=== PATIENT | female | born 1955 | race Caucasian/White ===

== ENCOUNTER → 2018-09-06 09:59 | Outpatient (CLI) | payer OTHER, SELFPAY ==
--- NOTE | 2018-09-06 | DI.MG.S_ITS ---
BILATERAL DIGITAL SCREENING MAMMOGRAM 3D/2D WITH CAD: 09/06/2018 CLINICAL: Routine screening. Family history of breast cancer. Comparison is made to exams dated: 09/24/2016 mammogram and 01/06/2008 mammogram - [facility]. The tissue of both breasts is heterogeneously dense. This may lower the sensitivity of mammography. Current study was also evaluated with a Computer Aided Detection (CAD) system. No significant masses, calcifications, or other findings are seen in either breast. There has been no significant interval change. IMPRESSION: NEGATIVE There is no mammographic evidence of malignancy. A 1 year screening mammogram is recommended. This exam was interpreted at Station ID: [id number]. NOTE: For mammograms, a report in lay terms will be sent to the patient. Approximately 15% of breast malignancies will not be visualized mammographically. In the management of a palpable breast mass, a negative mammogram must not discourage biopsy of a clinically suspicious lesion. Electronically Signed By: Viktoryia hitchcock/luis:09/06/2018 11:45:13 letter sent: Normal Exam ACR BI-RADS Category 1: Negative [id number]
== END ==
PROVIDERS: PCP Family Medicine; Visit Provider Internal Medicine
DX: Z12.31 Encounter for screening mammogram for malignant neoplasm of breast (principal); Z80.3 Family history of malignant neoplasm of breast
CPT/HCPCS: 77063; 77067

== ENCOUNTER → 2019-01-17 10:53 | Outpatient (CLI) | payer OTHER, SELFPAY ==
[2019-01-17 12:49] LABS: Alanine Aminotransferase 24 IU/L (9-52); Albumin 4.2 g/dL (3.5-5.0); Albumin Globulin Ratio 1.6 (1.0-2.8); Alkaline Phosphatase 85 U/L (38-126); Aspartate Aminotransferase 21 IU/L (14-36); BUN Creatinine Ratio 14.3 (6-22); Bilirubin Total 0.7 mg/dL (0.2-1.3); Blood Urea Nitrogen 10 mg/dL (7-17); Calcium 9.2 mg/dL (8.4-10.2); Carbon Dioxide 26 mmol/L (22-32); Chloride 103 mmol/L (98-107); Cholesterol 186 mg/dL (140-199); Estimated Glomerular Filt Rate > 60.0 mL/min (>60); Globulin 2.7 g/dL (1.7-4.1); Glucose 103 mg/dL (80-110); HDL Cholesterol 61 mg/dL (40-60); HEMOLYSIS < 15 (0-50); LDL Cholesterol Calculated 108 mg/dL (<100); Potassium 4.3 mmol/L (3.4-5.1); Sodium 138 mmol/L (137-145); Total Protein 6.9 g/dL (6.3-8.2); Triglycerides 86 mg/dL (35-150)
== END ==
PROVIDERS: Visit Provider Internal Medicine
DX: K21.9 Gastro-esophageal reflux disease without esophagitis (principal); L30.9 Dermatitis, unspecified; Z13.1 Encounter for screening for diabetes mellitus; Z13.6 Encounter for screening for cardiovascular disorders; Z86.010 Personal history of colon polyps
CPT/HCPCS: 36415; 80053; 80061

== ENCOUNTER 2019-03-19 08:17 | Day surgery (SDC) | payer OTHER, SELFPAY ==
[2019-03-19] VITALS (8 sets, daily range): BP systolic 111–135; BP diastolic 71–93; PULSE 61–87; RESP 15–18; TEMP 36.3–36.6; O2SAT 94–97; BMI 33.0
[2019-03-19] MEDS: LACTATED RINGERS 1,000 ML 42 ML IV (09:00)
--- NOTE | 2019-03-19 09:19 | PM.PREOP ---
Pre-operative Note Interval Note History & Physical reviewed/Exam performed by Physician: Yes Changes to H&P: No H&P completed within 30 days and has changed as indicated here:: please see note from 02/20 for history and physical
--- NOTE | 2019-03-19 10:19 | PM.OP.1 ---
Operative Date/Time/Diagnoses Date of procedure: 03/19/19 Time of procedure: 10:09 Post-op diagnosis: same (Small internal hemorrhoids. Decreased sphincter tone. No evidence of abscess) Procedure & Clinicians Procedure: A not scope be with 4 column banding of internal hemorrhoids Same procedure as scheduled: Yes Indications: Anal pain and bleeding Surgeon: Erik Heller Click Yes if Unassisted: Yes Anesthesia Type: General Operative Notes Findings: For small columns of hemorrhoids were banded. Each of these were associated with small hemorrhoids at the level just inside the anal verge. Bands were placed well above the dentate line. Closure Type: not applicable Specimen(s): none sent Prosthetic devices, grafts, tissues, transplants, or devices: Rubber bands Estimated Blood Loss (mL): 0 Procedure in detail: Patient is placed in left lateral decubitus on her stretcher after undergoing general LMA anesthesia. An axillary roll was placed and she was padded. Digital exam was remarkable for decreased sphincter tone. There was no visible fissure. Anoscope was inserted and circumferential exam performed. There were some small internal hemorrhoids mostly right inside the anal verge. The a banding anoscopy was inserted and I banded 4 columns of hemorrhoids. There was no significant bleeding and no complication. Patient was awakened extubated taken recovery area in good condition. Complications: none Condition: stable Disposition: PACU Plan for aftercare: Follow-up in office
[2019-03-19] MEDS: fentaNYL 100 MCG/2 ML INJ 50 MCG IV ×2 (10:30→10:40)
[2019-03-19] MEDS: HYDROMORPHONE 2 MG INJ 0.5 MG IV (10:57)
[2019-03-19] MEDS: HYDROCODONE/ACET 5/325 TABLET 1 TAB PO (11:59)
== END 2019-03-19 12:40 | disposition home or self-care (01) ==
PROVIDERS: PCP Internal Medicine; Visit Provider Specialist
PROC: 0DJD8ZZ Inspection of Lower Intestinal Tract, Via Natural or Artificial Opening Endoscopic (ICD-10-PCS; CPT 45378; principal; 2019-03-19 09:45)
DX: K64.8 Other hemorrhoids (principal)
CPT/HCPCS: 46221; J1100; J1170; J2704; J3010

== ENCOUNTER 2019-04-24 15:21 | Emergency (ER) | payer OTHER, SELFPAY ==
[2019-04-24] VITALS (14 sets, daily range): BP systolic 118–145; BP diastolic 69–88; PULSE 68–88; RESP 14–22; TEMP 36.8–37; O2SAT 93–99; BMI 35.5
--- NOTE | 2019-04-24 15:24 | DI.RAD.S_ITS ---
PROCEDURE: XR CHEST 1V INDICATIONS: chest pain TECHNIQUE: One view of the chest was acquired. COMPARISON: [facility], , CHEST 1 VIEW, 11/22/2015, 17:29. FINDINGS: Surgical changes and devices: None. Lungs and pleura: Lungs are clear. No pleural effusions or pneumothorax. Mediastinum: Mediastinal contours appear normal. Heart size is normal. Bones and chest wall: No suspicious bony lesions. Overlying soft tissues appear unremarkable. IMPRESSION: Stable chest. No acute cardiopulmonary process is evident. Dictated by: Ranjith Wagner M.D. on 04/24/2019 at 14:50 Approved by: Ranjith Wagner M.D. on 04/24/2019 at 14:51
[2019-04-24] MEDS: NITROGLYCERIN 0.4 MG SL TAB SL ×3 (15:35→17:17)
--- NOTE | 2019-04-24 15:35 | ED.CHESTPAIN ---
HPI - Chest Pain General Chief Complaint: Chest Pain Stated Complaint: CHEST PAIN Time Seen by Provider: 04/24/19 15:26 Source: patient Mode of arrival: ambulatory Limitations: no limitations History of Present Illness HPI narrative: Patient is a 63-year-old female who presents with chest discomfort. She has no history of coronary artery disease. She says she has had multiple episodes today typically with exertion. The 1st started shortly after she woke up this morning at 7:00 a.m. she was walking and noticed at another time she was going upstairs. Now it seems to be at rest in the emergency department seems to be quite intense. Left-sided under left breast nonradiating no shortness of breath no nausea or diaphoresis. She has never had anything like this in the past. She took aspirin prior to arrival. MD complaint: chest pain Onset (ago): hour(s) Duration: intermittent Quality: sharp Pain radiation: none Relieving factors: nothing Exacerbating factors: exertion Related Data Home Medications Medication Instructions Recorded Confirmed aspirin 325 mg tablet 650 mg PO Q4-6H PRN 12/11/18 04/24/19 desonide 0.05 % topical ointment 1 applictn TOP DAILY 12/11/18 04/24/19 Vitamins 1 dose PO DAILY 04/24/19 04/24/19 fluocinonide 1 applic TOPICAL DIRECTED 04/24/19 04/24/19 metronidazole [Noritate] 1 applic TOPICAL QPM 04/24/19 04/24/19 omeprazole 40 mg PO BEDTIME 04/24/19 04/24/19 Previous Rx's Medication Instructions Recorded hydrocortisone acetate 25 mg 25 mg [place] QDAYP PRN #12 suppositor 12/11/18 rectal suppository clotrimazole-betamethasone 1 1 applictn TOP BID #45 gram 01/22/19 %-0.05 % topical cream Allergies Allergy/AdvReac Type Severity Reaction Status Date / Time Iodinated Contrast- Oral and Allergy Severe shakes, Verified 04/24/19 15:34 IV Dye hives, [IODINATED CONTRAST MEDIA - itchy IV DYE] lidocaine [LIDOCAINE] Allergy Severe shakes, Verified 04/24/19 15:34 hyperventilating, near syncope adhesive [ADHESIVE] Allergy Mild paper tape Verified 04/24/19 15:34 causes blisters, other tapes ok prilocaine [PRILOCAINE] Allergy Mild shaking, Verified 04/24/19 15:34 rash Sulfa (Sulfonamide Allergy Mild childhood Verified 04/24/19 15:34 Antibiotics) rxn [SULFA (SULFONAMIDE ANTIBIOTICS)] julissa Allergy Mild rash Uncoded 04/24/19 15:34 metal Allergy Mild necklaces, Uncoded 04/24/19 15:34 rings, bracelets, causes irritations/blisters fin fish Allergy Unknown rash/hives Uncoded 04/24/19 15:34 Review of Systems Review of Systems GENERAL: Denies chills, fatigue, malaise, fever, sweats, travel HEENT: Denies sinus pain, ear pain, sore throat, difficulty swallowing, neck pain RESPIRATORY: Denies dyspnea, cough, wheezing, hemoptysis, sputum. CARDIOVASCULAR: See HPI GASTROINTESTINAL: Denies nausea, vomiting, abdominal pain, diarrhea, constipation, melena. : Denies dysuria, frequency, incontinence, hematuria, urinary retention, flank pain. MUSCULOSKELETAL: Denies weakness, joint pain, or bony pain SKIN: No rash, no erythema, no pruritus NEUROLOGIC: Denies weakness, dizziness, headache, numbness, change in speech, confusion PSYCHIATRIC: No concerning psychosocial issues. 12 point review of systems is negative except for those stated above and HPI [facility] History GERD (gastroesophageal reflux disease) (Chronic 01/22/13) H/O adenomatous polyp of colon (Inactive 09/12/11) Venous insufficiency of left leg (Chronic) Class 1 obesity (Inactive 12/30/14) Eczema (Inactive 03/02/15) Hayfever (Chronic) Hiatal hernia (Chronic) Rosacea (Chronic) Chicken pox (Resolved 1968) Encephalitis (Resolved ~1962) Foot pain (Resolved 2005) Gluten enteropathy (Resolved) Mumps (Resolved ~1960) Cataract (Inactive) Hemorrhoids (Inactive) Surgical History Anesthesia complication (Resolved) History of strabismus surgery (Resolved 1966) Status post colonoscopy (Resolved 01/10/10) Status post endoscopy (Resolved 08/06/14) Status post knee surgery (Resolved 2011) Status post laparoscopic cholecystectomy (Resolved 2013) Status post laparoscopy (Resolved 05/2010) Status post ovarian cystectomy (Resolved 2003) Family History Father CAD (coronary artery disease) High cholesterol Asbestos exposure Smoker Myocardial infarction Grandfather Kidney stones Grandmother Goiter Breast cancer Colon cancer Mother COPD (chronic obstructive pulmonary disease) Diabetes mellitus Lung disease Grandmother Breast cancer Sister Age: 63 Atrial fibrillation Asthma Grandfather No problems noted. Social History marital status: household members: spouse occupational status: previously employed Smoking Status: Never smoker alcohol intake: never substance use type: does not use Family History Father CAD (coronary artery disease) High cholesterol Asbestos exposure Smoker Myocardial infarction Grandfather Kidney stones Grandmother Goiter Breast cancer Colon cancer Mother COPD (chronic obstructive pulmonary disease) Diabetes mellitus Lung disease Grandmother Breast cancer Sister Age: 63 Atrial fibrillation Asthma Grandfather No problems noted. Social History marital status: household members: spouse occupational status: previously employed Smoking Status: Never smoker alcohol intake: never substance use type: does not use Exam Initial Vital Signs Initial Vital Signs: Vital Signs Pulse Rate 88 04/24/19 15:24 Respiratory Rate 22 04/24/19 15:24 Blood Pressure 123/86 04/24/19 15:24 Pulse Oximetry 98 04/24/19 15:24 GENERAL: Patient quite anxious although she appears in severe pain HEENT: Head atraumatic,EOMI, pupils reactive, face symmetric, CARDIOVASCULAR: Regular rate and rhythm without murmurs, rubs or gallops. Pain under left breast not reproducible to palpation RESPIRATORY: Breath sounds equal bilaterally, no wheezes rales or rhonchi. ABDOMEN: Soft, nontender. Normoactive bowel sounds all 4 quadrants. No guarding or rebound. : No CVA tenderness EXTREMITIES: Normal range of motion, no clubbing or edema. Neurovascularly intact NEUROLOGICAL: Alert and oriented x4.Normal gait and speech. Cranial nerves II through XII grossly intact. SKIN: Warm, dry, no laceration, no petechiae, no rashes or lesions. Course Orders Ordered: Discontinued Medications Aspirin (Aspirin Chew) 324 mg PO NOW ONE Stop: 04/24/19 15:34 Last Admin: 04/24/19 15:39 Dose: Not Given Nitroglycerin (Nitrostat) 0.4 mg SL [id number] PRN PRN Reason: Chest Pain Last Admin: 04/24/19 17:17 Dose: 0.4 mg Admin: 04/24/19 17:05 Dose: 0.4 mg Admin: 04/24/19 15:35 Dose: 0.4 mg Pantoprazole Sodium (Protonix) 40 mg IV NOW ONE Stop: 04/24/19 15:42 Last Admin: 04/24/19 15:56 Dose: 40 mg Vital Signs - 8 hr 04/24/19 15:24 04/24/19 15:25 04/24/19 15:35 Temperature 98.3 F Pulse Rate 88 86 88 Respiratory Rate 22 18 18 Blood Pressure 145/88 H Blood Pressure [Right Arm] 123/86 139/88 Pulse Oximetry 98 99 98 04/24/19 15:43 04/24/19 16:00 04/24/19 16:30 Temperature Pulse Rate 75 69 Respiratory Rate 20 14 Blood Pressure Blood Pressure [Right Arm] 123/86 118/87 120/87 Pulse Oximetry 98 96 04/24/19 17:05 04/24/19 17:07 04/24/19 17:17 Temperature Pulse Rate 70 74 68 Respiratory Rate 18 Blood Pressure 129/80 122/75 Blood Pressure [Right Arm] 129/80 Pulse Oximetry 94 04/24/19 17:18 04/24/19 17:27 Temperature Pulse Rate 68 Respiratory Rate 20 Blood Pressure 122/69 Blood Pressure [Right Arm] 122/76 Pulse Oximetry 93 MDM - Chest Pain Lab Data Attestation: I reviewed the patient's lab results. Result diagrams: 04/24/19 15:30 04/24/19 15:30 Lab Results 04/24/19 04/24/19 04/24/19 Range/Units 15:30 15:30 15:30 WBC 5.1 (4.5-11.0) X10^3/uL RBC 4.93 (4.0-5.2) X10^6/uL Hgb 13.2 (12.0-16.0) g/dL Hct 39.7 (36-46) % MCV 80.6 (80-100) fL MCH 26.8 (26-34) PG MCHC 33.3 (30-36) % RDW 15.4 H (11.6-14.8) % Plt Count 239 (150-400) X10^3/uL Neut % (Auto) 53.6 (50-75) % Lymph % (Auto) 36.1 (25-40) % [place] % (Auto) 8.2 (3-14) % Eos % (Auto) 1.7 L (2-4) % Baso % (Auto) 0.4 (0-2) % Neut # (Auto) 2800 (7276-8102) /uL Lymph # (Auto) 1900 (4224-2453) /uL [place] # (Auto) 400 (0-900) /uL Eos # (Auto) 100 (0-450) /uL Baso # (Auto) 0 (0-100) /uL PT 12.9 H (10.1-12.7) SECONDS INR 1.1 (0.9-1.3) APTT 34 (26.4-36.2) SECONDS Sodium 141 (137-145) mmol/L Potassium 3.9 (3.4-5.1) mmol/L Chloride 104 (98-107) mmol/L Carbon Dioxide 27 (22-32) mmol/L BUN 9 (7-17) mg/dL Creatinine 0.70 (0.52-1.04) mg/dL Estimated GFR > 60.0 (>60) mL/min BUN/Creatinine Ratio 12.9 (6-22) Glucose 101 (80-110) mg/dL Calcium 8.9 (8.4-10.2) mg/dL Total Bilirubin 0.6 (0.2-1.3) mg/dL AST 23 (14-36) IU/L ALT 22 (9-52) IU/L Alkaline Phosphatase 71 (38-126) U/L Total Creatine Kinase 36 (30-135) U/L CK-MB (CK-2) TNP CK-MB (CK-2) Rel Index TNP Troponin I < 0.012 (0.01-0.034) ng/mL B-Natriuretic Peptide (<100) Total Protein 7.2 (6.3-8.2) g/dL Albumin 4.2 (3.5-5.0) g/dL Globulin 3.0 (1.7-4.1) g/dL Albumin/Globulin Ratio 1.4 (1.0-2.8) Lipase 119 (23-300) U/L 04/24/19 04/24/19 Range/Units 15:30 17:40 WBC (4.5-11.0) X10^3/uL RBC (4.0-5.2) X10^6/uL Hgb (12.0-16.0) g/dL Hct (36-46) % MCV (80-100) fL MCH (26-34) PG MCHC (30-36) % RDW (11.6-14.8) % Plt Count (150-400) X10^3/uL Neut % (Auto) (50-75) % Lymph % (Auto) (25-40) % [place] % (Auto) (3-14) % Eos % (Auto) (2-4) % Baso % (Auto) (0-2) % Neut # (Auto) (2879-3330) /uL Lymph # (Auto) (4462-4526) /uL [place] # (Auto) (0-900) /uL Eos # (Auto) (0-450) /uL Baso # (Auto) (0-100) /uL PT (10.1-12.7) SECONDS INR (0.9-1.3) APTT (26.4-36.2) SECONDS Sodium (137-145) mmol/L Potassium (3.4-5.1) mmol/L Chloride (98-107) mmol/L Carbon Dioxide (22-32) mmol/L BUN (7-17) mg/dL Creatinine (0.52-1.04) mg/dL Estimated GFR (>60) mL/min BUN/Creatinine Ratio (6-22) Glucose (80-110) mg/dL Calcium (8.4-10.2) mg/dL Total Bilirubin (0.2-1.3) mg/dL AST (14-36) IU/L ALT (9-52) IU/L Alkaline Phosphatase (38-126) U/L Total Creatine Kinase (30-135) U/L CK-MB (CK-2) CK-MB (CK-2) Rel Index Troponin I < 0.012 (0.01-0.034) ng/mL B-Natriuretic Peptide < 100 (<100) Total Protein (6.3-8.2) g/dL Albumin (3.5-5.0) g/dL Globulin (1.7-4.1) g/dL Albumin/Globulin Ratio (1.0-2.8) Lipase (23-300) U/L ECG Data Attestation: I personally reviewed and interpreted this ECG as follows: Prior ECG tracings: available for review Interpretation: EKG 1.: Normal sinus rhythm rate 74 appear interval 154 T-wave inversions noted be through be for all along with the [address] depressions to previous EKG in 2011 EKG 2. Sinus rhythm rate 64 appear interval 157 persistent T-wave inversions no changes MDM Narrative Medical decision making narrative: Patient was given nitroglycerin x3 for her chest discomfort. It does seem to help. She is also given Protonix she has a history of acid reflux. Patient's symptoms are certainly concerning for cardiac pain with exertion. However she is now having pain at rest. She is allergic to iodine at this time I do not believe her to have symptoms consistent with dissection. Pain seems to be localized under her left breast is not reproducible with movement or palpation. I discussed with PCP Dr. Glover, [facility] not able to do stress testing over the weekend. [place] doctor Moran has found bed at [place]. Dr. Greer Discharge Plan Departure Patient Disposition: [facility] Clinical Impression: Chest pain Qualifiers: Chest pain type: unspecified Qualified Code(s): R07.9 - Chest pain, unspecified Discharge Date/Time: 04/24/19 18:56 Interventions: ED Discharge Assessment Last Done: 04/24/19 18:47 Prescriptions: No Action desonide 0.05 % ointment 1 applictn TOP DAILY RF: 0 aspirin [Luisa Aspirin] 325 mg tablet 650 mg PO Q4-6H PRN (Reason: Headache) RF: 0 hydrocortisone acetate [Anusol-HC] 25 mg suppository 25 mg [place] QDAYP PRN (Reason: hemorrhoids) Qty: 12 RF: 0 clotrimazole-betamethasone 1-0.05 % cream 1 applictn TOP BID Qty: 45 RF: 0 omeprazole 40 mg capsule,delayed release(DR/EC) 40 mg PO BEDTIME RF: 0 fluocinonide 0.05 % Ointment 1 applic TOPICAL DIRECTED RF: 0 Noritate 1 % Cream 1 applic topical QPM RF: 0 Vitamins 1 dose PO DAILY RF: 0 Referrals: Td Bojras MD [Primary Care Provider] -
[2019-04-24 15:38] LABS: Add Manual Diff / Slide Review NO; Basophils Absolute Auto 0 /uL (0-100); Basophils Percent Auto 0.4 % (0-2); Eosinophils Absolute Auto 100 /uL (0-450); Eosinophils Percent Auto 1.7 % (2-4); Hematocrit 39.7 % (36-46); Hemoglobin 13.2 g/dL (12.0-16.0); Lymphocytes Absolute Auto 1900 /uL (1100-4500); Lymphocytes Percent Auto 36.1 % (25-40); Mean Corpuscular HGB Conc 33.3 % (30-36); Mean Corpuscular Hemoglobin 26.8 PG (26-34); Mean Corpuscular Volume 80.6 fL (80-100); Monocytes Absolute Auto 400 /uL (0-900); Monocytes Percent Auto 8.2 % (3-14); Neutrophils Absolute Auto 2800 /uL (1500-7000); Neutrophils Percent Auto 53.6 % (50-75); Platelet Count 239 X10^3/uL (150-400); Red Blood Cell Count 4.93 X10^6/uL (4.0-5.2); Red Cell Distribution Width 15.4 % (11.6-14.8); White Blood Cell Count 5.1 X10^3/uL (4.5-11.0)
--- NOTE | 2019-04-24 15:41 | ED_ITS ---
HPI - Chest Pain General Chief Complaint: Chest Pain Stated Complaint: CHEST PAIN Time Seen by Provider: 04/24/19 15:26 Source: patient Mode of arrival: ambulatory Limitations: no limitations History of Present Illness HPI narrative: Patient is a 63-year-old female who presents with chest discomfort. She has no history of coronary artery disease. She says she has had multiple episodes today typically with exertion. The 1st started shortly after she woke up this morning at 7:00 a.m. she was walking and noticed at another time she was going upstairs. Now it seems to be at rest in the emergency department seems to be quite intense. Left-sided under left breast nonradiating no shortness of breath no nausea or diaphoresis. She has never had anything like this in the past. She took aspirin prior to arrival. MD complaint: chest pain Onset (ago): hour(s) Duration: intermittent Quality: sharp Pain radiation: none Relieving factors: nothing Exacerbating factors: exertion Related Data Home Medications Medication Instructions Recorded Confirmed aspirin 325 mg tablet 650 mg PO Q4-6H PRN 12/11/18 04/24/19 desonide 0.05 % topical ointment 1 applictn TOP DAILY 12/11/18 04/24/19 Vitamins 1 dose PO DAILY 04/24/19 04/24/19 fluocinonide 1 applic TOPICAL DIRECTED 04/24/19 04/24/19 metronidazole [Noritate] 1 applic TOPICAL QPM 04/24/19 04/24/19 omeprazole 40 mg PO BEDTIME 04/24/19 04/24/19 Previous Rx's Medication Instructions Recorded hydrocortisone acetate 25 mg 25 mg ME QDAYP PRN #12 suppositor 12/11/18 rectal suppository clotrimazole-betamethasone 1 1 applictn TOP BID #45 gram 01/22/19 %-0.05 % topical cream Allergies Allergy/AdvReac Type Severity Reaction Status Date / Time Iodinated Contrast- Oral and Allergy Severe shakes, Verified 04/24/19 15:34 IV Dye hives, [IODINATED CONTRAST MEDIA - itchy IV DYE] lidocaine [LIDOCAINE] Allergy Severe shakes, Verified 04/24/19 15:34 hyperventilating, near syncope adhesive [ADHESIVE] Allergy Mild paper tape Verified 04/24/19 15:34 causes blisters, other tapes ok prilocaine [PRILOCAINE] Allergy Mild shaking, Verified 04/24/19 15:34 rash Sulfa (Sulfonamide Allergy Mild childhood Verified 04/24/19 15:34 Antibiotics) rxn [SULFA (SULFONAMIDE ANTIBIOTICS)] julissa Allergy Mild rash Uncoded 04/24/19 15:34 metal Allergy Mild necklaces, Uncoded 04/24/19 15:34 rings, bracelets, causes irritations/blisters fin fish Allergy Unknown rash/hives Uncoded 04/24/19 15:34 Review of Systems Review of Systems GENERAL: Denies chills, fatigue, malaise, fever, sweats, travel HEENT: Denies sinus pain, ear pain, sore throat, difficulty swallowing, neck pain RESPIRATORY: Denies dyspnea, cough, wheezing, hemoptysis, sputum. CARDIOVASCULAR: See HPI GASTROINTESTINAL: Denies nausea, vomiting, abdominal pain, diarrhea, constipation, melena. : Denies dysuria, frequency, incontinence, hematuria, urinary retention, flank pain. MUSCULOSKELETAL: Denies weakness, joint pain, or bony pain SKIN: No rash, no erythema, no pruritus NEUROLOGIC: Denies weakness, dizziness, headache, numbness, change in speech, confusion PSYCHIATRIC: No concerning psychosocial issues. 12 point review of systems is negative except for those stated above and HPI [facility] Medical History GERD (gastroesophageal reflux disease) (Chronic 01/22/13) H/O adenomatous polyp of colon (Inactive 09/12/11) Venous insufficiency of left leg (Chronic) Class 1 obesity (Inactive 12/30/14) Eczema (Inactive 03/02/15) Hayfever (Chronic) Hiatal hernia (Chronic) Rosacea (Chronic) Chicken pox (Resolved 1968) Encephalitis (Resolved ~1962) Foot pain (Resolved 2005) Gluten enteropathy (Resolved) Mumps (Resolved ~1960) Cataract (Inactive) Hemorrhoids (Inactive) Surgical History Anesthesia complication (Resolved) History of strabismus surgery (Resolved 1966) Status post colonoscopy (Resolved 01/10/10) Status post endoscopy (Resolved 08/06/14) Status post knee surgery (Resolved 2011) Status post laparoscopic cholecystectomy (Resolved 2013) Status post laparoscopy (Resolved 05/2010) Status post ovarian cystectomy (Resolved 2003) Family History Father CAD (coronary artery disease) High cholesterol Asbestos exposure Smoker Myocardial infarction Grandfather Kidney stones Grandmother Goiter Breast cancer Colon cancer Mother COPD (chronic obstructive pulmonary disease) Diabetes mellitus Lung disease Grandmother Breast cancer Sister Age: 63 Atrial fibrillation Asthma Grandfather No problems noted. Social History marital status: household members: spouse occupational status: previously employed Smoking Status: Never smoker alcohol intake: never substance use type: does not use Family History Father CAD (coronary artery disease) High cholesterol Asbestos exposure Smoker Myocardial infarction Grandfather Kidney stones Grandmother Goiter Breast cancer Colon cancer Mother COPD (chronic obstructive pulmonary disease) Diabetes mellitus Lung disease Grandmother Breast cancer Sister Age: 63 Atrial fibrillation Asthma Grandfather No problems noted. Social History marital status: household members: spouse occupational status: previously employed Smoking Status: Never smoker alcohol intake: never substance use type: does not use Exam Initial Vital Signs Initial Vital Signs: Vital Signs Pulse Rate 88 04/24/19 15:24 Respiratory Rate 22 04/24/19 15:24 Blood Pressure 123/86 04/24/19 15:24 Pulse Oximetry 98 04/24/19 15:24 GENERAL: Patient quite anxious although she appears in severe pain HEENT: Head atraumatic,EOMI, pupils reactive, face symmetric, CARDIOVASCULAR: Regular rate and rhythm without murmurs, rubs or gallops. Pain under left breast not reproducible to palpation RESPIRATORY: Breath sounds equal bilaterally, no wheezes rales or rhonchi. ABDOMEN: Soft, nontender. Normoactive bowel sounds all 4 quadrants. No guarding or rebound. : No CVA tenderness EXTREMITIES: Normal range of motion, no clubbing or edema. Neurovascularly i ntact NEUROLOGICAL: Alert and oriented x4.Normal gait and speech. Cranial nerves II through XII grossly intact. SKIN: Warm, dry, no laceration, no petechiae, no rashes or lesions. Course Orders Ordered: Discontinued Medications Aspirin (Aspirin Chew) 324 mg PO NOW ONE Stop: 04/24/19 15:34 Last Admin: 04/24/19 15:39 Dose: Not Given Nitroglycerin (Nitrostat) 0.4 mg SL [id number] PRN PRN Reason: Chest Pain Last Admin: 04/24/19 17:17 Dose: 0.4 mg Admin: 04/24/19 17:05 Dose: 0.4 mg Admin: 04/24/19 15:35 Dose: 0.4 mg Pantoprazole Sodium (Protonix) 40 mg IV NOW ONE Stop: 04/24/19 15:42 Last Admin: 04/24/19 15:56 Dose: 40 mg Vital Signs - 8 hr 04/24/19 15:24 04/24/19 15:25 04/24/19 15:35 Temperature 98.3 F Pulse Rate 88 86 88 Respiratory Rate 22 18 18 Blood Pressure 145/88 H Blood Pressure [Right Arm] 123/86 139/88 Pulse Oximetry 98 99 98 04/24/19 15:43 04/24/19 16:00 04/24/19 16:30 Temperature Pulse Rate 75 69 Respiratory Rate 20 14 Blood Pressure Blood Pressure [Right Arm] 123/86 118/87 120/87 Pulse Oximetry 98 96 04/24/19 17:05 04/24/19 17:07 04/24/19 17:17 Temperature Pulse Rate 70 74 68 Respiratory Rate 18 Blood Pressure 129/80 122/75 Blood Pressure [Right Arm] 129/80 Pulse Oximetry 94 04/24/19 17:18 04/24/19 17:27 Temperature Pulse Rate 68 Respiratory Rate 20 Blood Pressure 122/69 Blood Pressure [Right Arm] 122/76 Pulse Oximetry 93 MDM - Chest Pain Lab Data Attestation: I reviewed the patient's lab results. Result diagrams: 04/24/19 15:30 04/24/19 15:30 Lab Results 04/24/19 04/24/19 04/24/19 Range/Units 15:30 15:30 15:30 WBC 5.1 (4.5-11.0) X10^3/uL RBC 4.93 (4.0-5.2) X10^6/uL Hgb 13.2 (12.0-16.0) g/dL Hct 39.7 (36-46) % MCV 80.6 (80-100) fL MCH 26.8 (26-34) PG MCHC 33.3 (30-36) % RDW 15.4 H (11.6-14.8) % Plt Count 239 (150-400) X10^3/uL Neut % (Auto) 53.6 (50-75) % Lymph % (Auto) 36.1 (25-40) % Hardeman % (Auto) 8.2 (3-14) % Eos % (Auto) 1.7 L (2-4) % Baso % (Auto) 0.4 (0-2) % Neut # (Auto) 2800 (8358-2495) /uL Lymph # (Auto) 1900 (2584-3010) /uL Hardeman # (Auto) 400 (0-900) /uL Eos # (Auto) 100 (0-450) /uL Baso # (Auto) 0 (0-100) /uL PT 12.9 H (10.1-12.7) SECONDS INR 1.1 (0.9-1.3) APTT 34 (26.4-36.2) SECONDS Sodium 141 (137-145) mmol/L Potassium 3.9 (3.4-5.1) mmol/L Chloride 104 (98-107) mmol/L Carbon Dioxide 27 (22-32) mmol/L BUN 9 (7-17) mg/dL Creatinine 0.70 (0.52-1.04) mg/dL Estimated GFR > 60.0 (>60) mL/min BUN/Creatinine Ratio 12.9 (6-22) Glucose 101 (80-110) mg/dL Calcium 8.9 (8.4-10.2) mg/dL Total Bilirubin 0.6 (0.2-1.3) mg/dL AST 23 (14-36) IU/L ALT 22 (9-52) IU/L Alkaline Phosphatase 71 (38-126) U/L Total Creatine Kinase 36 (30-135) U/L CK-MB (CK-2) TNP CK-MB (CK-2) Rel Index TNP Troponin I < 0.012 (0.01-0.034) ng/mL B-Natriuretic Peptide (<100) Total Protein 7.2 (6.3-8.2) g/dL Albumin 4.2 (3.5-5.0) g/dL Globulin 3.0 (1.7-4.1) g/dL Albumin/Globulin Ratio 1.4 (1.0-2.8) Lipase 119 (23-300) U/L 04/24/19 04/24/19 Range/Units 15:30 17:40 WBC (4.5-11.0) X10^3/uL RBC (4.0-5.2) X10^6/uL Hgb (12.0-16.0) g/dL Hct (36-46) % MCV (80-100) fL MCH (26-34) PG MCHC (30-36) % RDW (11.6-14.8) % Plt Count (150-400) X10^3/uL Neut % (Auto) (50-75) % Lymph % (Auto) (25-40) % Hardeman % (Auto) (3-14) % Eos % (Auto) (2-4) % Baso % (Auto) (0-2) % Neut # (Auto) (3134-8822) /uL Lymph # (Auto) (3608-4940) /uL Hardeman # (Auto) (0-900) /uL Eos # (Auto) (0-450) /uL Baso # (Auto) (0-100) /uL PT (10.1-12.7) SECONDS INR (0.9-1.3) APTT (26.4-36.2) SECONDS Sodium (137-145) mmol/L Potassium (3.4-5.1) mmol/L Chloride (98-107) mmol/L Carbon Dioxide (22-32) mmol/L BUN (7-17) mg/dL Creatinine (0.52-1.04) mg/dL Estimated GFR (>60) mL/min BUN/Creatinine Ratio (6-22) Glucose (80-110) mg/dL Calcium (8.4-10.2) mg/dL Total Bilirubin (0.2-1.3) mg/dL AST (14-36) IU/L ALT (9-52) IU/L Alkaline Phosphatase (38-126) U/L Total Creatine Kinase (30-135) U/L CK-MB (CK-2) CK-MB (CK-2) Rel Index Troponin I < 0.012 (0.01-0.034) ng/mL B-Natriuretic Peptide < 100 (<100) Total Protein (6.3-8.2) g/dL Albumin (3.5-5.0) g/dL Globulin (1.7-4.1) g/dL Albumin/Globulin Ratio (1.0-2.8) Lipase (23-300) U/L ECG Data Attestation: I personally reviewed and interpreted this ECG as follows: Prior ECG tracings: available for review Interpretation: EKG 1.: Normal sinus rhythm rate 74 appear interval 154 T-wave inversions noted be through be for all along with the [address] depressions to previous EKG in 2011 EKG 2. Sinus rhythm rate 64 appear interval 157 persistent T-wave inversions no changes MDM Narrative Medical decision making narrative: Patient was given nitroglycerin x3 for her chest discomfort. It does seem to help. She is also given Protonix she has a history of acid reflux. Patient's symptoms are certainly concerning for cardiac pain with exertion. However she is now having pain at rest. She is allergic to iodine at this time I do not believe her to have symptoms consistent with dissection. Pain seems to be localized under her left breast is not reproducible with movement or palpation. I discussed with PCP Dr. Glover, [facility] not able to do stress testing over the weekend. [facility] has found bed at [facility] Dr. Greer Discharge Plan Departure Patient Disposition: [facility] Clinical Impression: Chest pain Qualifiers: Chest pain type: unspecified Qualified Code(s): R07.9 - Chest pain, unspecified Discharge Date/Time: 04/24/19 18:56 Interventions: ED Discharge Assessment Last Done: 04/24/19 18:47 Prescriptions: No Action desonide 0.05 % ointment 1 applictn TOP DAILY RF: 0 aspirin [Luisa Aspirin] 325 mg tablet 650 mg PO Q4-6H PRN (Reason: Headache) RF: 0 hydrocortisone acetate [Anusol-HC] 25 mg suppository 25 mg ME QDAYP PRN (Reason: hemorrhoids) Qty: 12 RF: 0 clotrimazole-betamethasone 1-0.05 % cream 1 applictn TOP BID Qty: 45 RF: 0 omeprazole 40 mg capsule,delayed release(DR/EC) 40 mg PO BEDTIME RF: 0 fluocinonide 0.05 % Ointment 1 applic TOPICAL DIRECTED RF: 0 Noritate 1 % Cream 1 applic topical QPM RF: 0 Vitamins 1 dose PO DAILY RF: 0 Referrals: Td Borjas MD [Primary Care Provider] -
[2019-04-24 15:45] LABS: INR 1.1 (0.9-1.3); Prothrombin Time 12.9 SECONDS (10.1-12.7)
[2019-04-24 15:47] LABS: PTT Partial Thromboplastin Tim 34 SECONDS (26.4-36.2)
[2019-04-24 15:50] LABS: Alanine Aminotransferase 22 IU/L (9-52); Albumin 4.2 g/dL (3.5-5.0); Albumin Globulin Ratio 1.4 (1.0-2.8); Alkaline Phosphatase 71 U/L (38-126); Aspartate Aminotransferase 23 IU/L (14-36); BUN Creatinine Ratio 12.9 (6-22); Bilirubin Total 0.6 mg/dL (0.2-1.3); Blood Urea Nitrogen 9 mg/dL (7-17); Calcium 8.9 mg/dL (8.4-10.2); Carbon Dioxide 27 mmol/L (22-32); Chloride 104 mmol/L (98-107); Creatine Kinase 36 U/L (30-135); Estimated Glomerular Filt Rate > 60.0 mL/min (>60); Glucose 101 mg/dL (80-110); HEMOLYSIS < 15 (0-50); Lipase 119 U/L (23-300); Potassium 3.9 mmol/L (3.4-5.1); Sodium 141 mmol/L (137-145); Total Protein 7.2 g/dL (6.3-8.2)
[2019-04-24] MEDS: PANTOPRAZOLE 40 MG VIAL IV (15:56)
[2019-04-24 15:58] LABS: B Type Natriuretic Peptide < 100 (<100)
[2019-04-24 16:01] LABS: Troponin I < 0.012 ng/mL (0.01-0.034)
[2019-04-24 18:17] LABS: Troponin I < 0.012 ng/mL (0.01-0.034)
== END 2019-04-24 18:56 | disposition short-term general hospital (02) ==
PROVIDERS: Emergency Provider Emergency Medicine; PCP Internal Medicine
DX: R07.9 Chest pain, unspecified (principal)
CPT/HCPCS: 36415; 36591; 71045; 80053; 82550; 83690; 83880; 84484; 85025; 85610; 85730; 93005; 93010; 96374; 99284; 99285; C9113

== ENCOUNTER 2019-09-07 15:15 | Outpatient (RCR) | payer OTHER, SELFPAY ==
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
== END 2019-09-11 12:56 ==
LOC: PHYS 15:15
PROVIDERS: PCP Internal Medicine; Visit Provider Internal Medicine
DX: M25.511 Pain in right shoulder (principal); R29.3 Abnormal posture; R53.1 Weakness
CPT/HCPCS: 97110; 97140; 97161

== ENCOUNTER → 2019-09-09 11:33 | Outpatient (CLI) | payer OTHER, SELFPAY ==
--- NOTE | 2019-09-09 | DI.MG.S_ITS ---
BILATERAL DIGITAL SCREENING MAMMOGRAM 3D/2D WITH CAD: 09/09/2019 CLINICAL: Routine screening. Family history of breast cancer. Comparison is made to exams dated: 09/06/2018 mammogram, 09/24/2016 mammogram, and 01/06/2008 mammogram - [facility]. The tissue of both breasts is heterogeneously dense. This may lower the sensitivity of mammography. Current study was also evaluated with a Computer Aided Detection (CAD) system. No significant masses, calcifications, or other findings are seen in either breast. There has been no significant interval change. IMPRESSION: NEGATIVE There is no mammographic evidence of malignancy. A 1 year screening mammogram is recommended. This exam was interpreted at Station ID: [id number]. NOTE: For mammograms, a report in lay terms will be sent to the patient. Approximately 15% of breast malignancies will not be visualized mammographically. In the management of a palpable breast mass, a negative mammogram must not discourage biopsy of a clinically suspicious lesion. Electronically Signed By: Geronimo montes/luis:09/09/2019 13:11:23 letter sent: Normal Exam ACR BI-RADS Category 1: Negative [id number]
== END ==
PROVIDERS: PCP Internal Medicine; Visit Provider Internal Medicine
DX: Z12.31 Encounter for screening mammogram for malignant neoplasm of breast (principal); Z80.3 Family history of malignant neoplasm of breast
CPT/HCPCS: 77063; 77067

== ENCOUNTER 2019-10-22 14:30 | Outpatient (RCR) | payer OTHER, SELFPAY ==
--- NOTE | 2019-09-02 14:31 | PT.OPPOC ---
Current Diagnoses Other specified disorders of muscle (09/02/19) Vulvodynia, unspecified (09/02/19) Visit Care Team Role Provider Type Td Borjas MD Primary Care Provider Physician Specialty: Internal Medicine Address: [address] [place] [address], [facility] [address], [place], [address] Email: [email or web address] Maggie Mcguire MD Attending Provider Physician Specialty: ORE BRIDGE OPERATOR Address: [address] [place] [address] [place] [address], [id number] Email: [email or web address] Plan Of Care PT-OP-T Assessment and Plan Start: 09/02/19 10:27 Freq: Status: Active Protocol: Document 09/02/19 14:30 AMB (Rec: 09/06/19 12:35 AMB [email or web address]) Physical Therapy Assessment Rehab Potential Rehabilitation Potential Good Evaluation Complexity Number of Personal Factors/Comorbidities 3 or More Number of Body Systems Impaired 4 or More Clinical Presentation at Evaluation Evolving Impairments Impairments Pain,Soft Tissue Mobility, Strength,Tone Goals 3 Impairment pain Short Term Goal (STG) Edna will tolerate insertion of a medium dilator without an increase in pain. STG Duration 4 weeks Catheter Finisher And Inspector Goal (LTG) Edna will be able to wash herself without an increase in her baseline pain. LTG Duration 8 weeks 2 Impairment stress incontinence Short Term Goal (STG) Edna will be independent with a HEP to reduce her pelvic tension and improve her pelvic floor strength. STG Duration 4 weeks Retirement Goal (LTG) Edna will be able to cough without leaking urine. LTG Duration 8 weeks Assessment Summary Assessment Edna attends physical therapy with signs and symptoms consistent with vulvodynia. Q tip testing of the vestibule was negative, but palpation at level 1 and 2 internally did reproduce her pain. She has benefited from instruction in dilator use in the past, and may benefit from that again, as well as instruction in skin hygeine and manual therapy to reduce pelvic floor tension and pain. Physical Therapy Plan Frequency and Duration Frequency of Treatment 1x/Week Duration of Treatment 8 weeks Plan of Care Start Date 09/02/19 Plan of Care End Date 10/28/19 Therapeutic Interventions Therapeutic Interventions Home Exercise Program,Manual Therapy,Neuromuscular Re- education,Self-Care/Home Management,Soft Tissue Mobilization,Therapeutic Activities,Therapeutic Exercises Modalities Biofeedback,Electric Stimulation Next Visit Focus/Plan Next Note Type Treatment Note Next Visit Plan sEMG and NMES if the patient can tolerate insertion of the sensor. Manual therapy and stretching, as well as instruction in self care to reduce pain, decrease toileting/skin irritation Plan of Care Dates Plan of Care Start Date 09/02/19 Plan of Care End Date 10/28/19
--- NOTE | 2019-09-02 16:30 | PT.OIE ---
Current Diagnoses Other specified disorders of muscle (09/02/19) Vulvodynia, unspecified (09/02/19) Past Medical History (Last Updated 09/03/19 @ 11:41 by Td Borjas MD) Anxiety (Chronic) Cataract (Inactive) Chicken pox (Resolved 1968) Chronic abdominal pain (Chronic) Class 1 obesity (Inactive 12/30/14) Eczema (Inactive 03/02/15) Encephalitis (Resolved ~1962) Foot pain (Resolved 2005) GERD (gastroesophageal reflux disease) (Chronic 01/22/13) Gluten enteropathy (Resolved) H/O adenomatous polyp of colon (Inactive 09/12/11) Hayfever (Chronic) Hemorrhoids (Inactive) Hiatal hernia (Chronic) Mumps (Resolved ~1960) Pelvic floor dysfunction (Acute) Rosacea (Chronic) Venous insufficiency of right leg (Acute) Vulvodynia (Chronic) Past Surgical History (Last Reviewed 04/24/19 @ 15:41 by Eve Garcia DO) Anesthesia complication (Resolved) History of strabismus surgery (Resolved 1966) Status post colonoscopy (Resolved 01/10/10) Status post endoscopy (Resolved 08/06/14) Status post knee surgery (Resolved 2011) Status post laparoscopic cholecystectomy (Resolved 2013) Status post laparoscopy (Resolved 05/2010) Status post ovarian cystectomy (Resolved 2003) Visit Care Team Role Provider Type Td Borjas MD Primary Care Provider Physician Specialty: Internal Medicine Address: [address] [place] [address] Email: [email or web address] Maggie Mcguire MD Attending Provider Physician Specialty: INDUSTRIAL AERIAL INSTALLER Address: [address] [place] [address] Email: [email or web address] Physical Therapy Initial Evaluation PT-OP-A Visit Information Start: 09/02/19 10:27 Freq: Status: Active Protocol: Document 09/02/19 14:30 AMB (Rec: 09/06/19 12:35 AMB [email or web address]) Out-Patient Physical Therapy Visit Information Visit Information Visit Type Initial Evaluation Visit Start Time 14:30 Visit Stop Time 15:15 Total Visit Minutes 45 Visit Number 1 PT-OP-B Current Condition Start: 09/02/19 10:27 Freq: Status: Active Protocol: Document 09/02/19 14:30 AMB (Rec: 09/06/19 12:35 AMB [email or web address]) Current Condition History of Current Condition Onset Date 2+ years ago Current Complaints pelvic pain History of Current Condition Edna reports that cleaning her pelvic floor in the shower every other day is horribly painful. She states that she does have a history of painful intercourse. She late in life, and did need to use dilators prior to intercourse. That seemed to work well, and she reports that on her honeymoon she was able to tolerate intercourse well. Then her was diagnosed with Parkinson's and had a harder time maintaining an erection and this made intercourse much more painful for her. They are no longer currently sexually active. She is fine with this, her main goal is to decrease her pain with cleaning her pelvic floor. She also notes that while urinating, the act of urinating is not painful, but if the urine gets on her labia or the surrounding tissue that is quite painful. She does note small leaks with cough/sneeze. Personal Factors Other Personal Factors That May Effect History of encephalopathy as a Therapy/Recovery child, depression, back pain, PT-OP-C Subjective Start: 09/02/19 10:27 Freq: Status: Active Protocol: Document 09/02/19 14:30 AMB (Rec: 09/06/19 12:35 AMB [email or web address]) Patient Questionnaires Pelvic Pain and Urgency/Frequency Patient Symptom Scale Pelvic Pain Score 11 PT-OP-I Pelvic Floor Start: 09/02/19 10:27 Freq: Status: Active Protocol: Document 09/02/19 14:30 AMB (Rec: 09/06/19 12:35 AMB [email or web address]) Pelvic Floor Assessment Urine Pelvic Floor Surgery No Urinary Symptoms Dysuria,Pain Leakage Size Small Leakage Cause Cough,Sneeze,Urge Leaks Per Day infrequent Voiding Frequency every 2-3 hours Nocturia 3 Pelvic Clock Pelvic Clock 12-3 Guarding,Hypertonic,Tenderness ,Tightness Pelvic Clock 3-6 Guarding,Hypertonic,Tenderness ,Tightness Pelvic Clock 6-9 Guarding,Hypertonic,Tenderness ,Tightness Pelvic Clock 9-12 Guarding,Hypertonic,Tenderness ,Tightness Pelvic Clock Other Tested with q tip and no pain throughout pelvic clock at labia or vestibule, pain reported above was with insertion to at least one knuckle. Pt does have redness at perineum and toilet paper is present- pt does report blotting which may lead to toilet paper sticking to skin. Comments Pelvic Floor Comments will need to assess prolapse at later date, did not today due to pt's pain levels PT-OP-T Assessment and Plan Start: 09/02/19 10:27 Freq: Status: Active Protocol: Document 09/02/19 14:30 AMB (Rec: 09/06/19 12:35 AMB [email or web address]) Physical Therapy Assessment Rehab Potential Rehabilitation Potential Good Evaluation Complexity Number of Personal Factors/Comorbidities 3 or More Number of Body Systems Impaired 4 or More Clinical Presentation at Evaluation Evolving Impairments Impairments Pain,Soft Tissue Mobility, Strength,Tone Goals 3 Impairment pain Short Term Goal (STG) Edna will tolerate insertion of a medium dilator without an increase in pain. STG Duration 4 weeks Mcfp Goal (LTG) Edna will be able to wash herself without an increase in her baseline pain. LTG Duration 8 weeks 2 Impairment stress incontinence Short Term Goal (STG) Edna will be independent with a HEP to reduce her pelvic tension and improve her pelvic floor strength. STG Duration 4 weeks Coremaker Goal (LTG) Edna will be able to cough without leaking urine. LTG Duration 8 weeks Assessment Summary Assessment Edna attends physical therapy with signs and symptoms consistent with vulvodynia. Q tip testing of the vestibule was negative, but palpation at level 1 and 2 internally did reproduce her pain. She has benefited from instruction in dilator use in the past, and may benefit from that again, as well as instruction in skin hygiene and manual therapy to reduce pelvic floor tension and pain. Physical Therapy Plan Frequency and Duration Frequency of Treatment 1x/Week Duration of Treatment 8 weeks Plan of Care Start Date 09/02/19 Plan of Care End Date 10/28/19 Therapeutic Interventions Therapeutic Interventions Home Exercise Program,Manual Therapy,Neuromuscular Re- education,Self-Care/Home Management,Soft Tissue Mobilization,Therapeutic Activities,Therapeutic Exercises Modalities Biofeedback,Electric Stimulation Next Visit Focus/Plan Next Note Type Treatment Note Next Visit Plan sEMG and NMES if the patient can tolerate insertion of the sensor. Manual therapy and stretching, as well as instruction in self care to reduce pain, decrease toileting/skin irritation
--- NOTE | 2019-09-10 16:21 | PT.OTN ---
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) Physical Therapy Treatment Note PT-OP-A Visit Information Start: 09/02/19 10:27 Freq: Status: Active Protocol: Document 09/10/19 14:30 AMB (Rec: 09/10/19 16:20 AMB [email or web address]) Out-Patient Physical Therapy Visit Information Visit Information Visit Type Treatment Note Visit Start Time 14:30 Visit Stop Time 15:15 Total Visit Minutes 45 Visit Number 2 PT-OP-B Current Condition Start: 09/02/19 10:27 Freq: Status: Active Protocol: Document 09/02/19 14:30 AMB (Rec: 09/06/19 12:35 AMB [email or web address]) Current Condition History of Current Condition Onset Date 2+ years ago Current Complaints pelvic pain History of Current Condition Edna reports that cleaning her pelvic floor in the shower every other day is horribly painful. She states that she does have a history of painful intercourse. She late in life, and did need to use dilators prior to intercourse. That seemed to work well, and she reports that on her honeymoon she was able to tolerate intercourse well. Then her was diagnosed with Parkinson's and had a harder time maintaining an erection and this made intercoure much more painful for her. They are no longer currently sexually active. She is fine with this, her main goal is to decrease her pain with cleaning her pelvic floor. She also notes that while urinating, the act of urinating is not painful, but if the urine gets on her labia or the surrounding tissue that is quite painful. She does note small leaks with cough/sneeze. 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 PT-OP-I Pelvic Floor Start: 09/02/19 10:27 Freq: Status: Active Protocol: Document 09/02/19 14:30 AMB (Rec: 09/06/19 12:35 AMB [email or web address]) Pelvic Floor Assessment Urine Pelvic Floor Surgery No Urinary Symptoms Dysuria,Pain Leakage Size Small Leakage Cause Cough,Sneeze,Urge Leaks Per Day infrequent Voiding Frequency every 2-3 hours Nocturia 3 Pelvic Clock Pelvic Clock 12-3 Guarding,Hypertonic,Tenderness ,Tightness Pelvic Clock 3-6 Guarding,Hypertonic,Tenderness ,Tightness Pelvic Clock 6-9 Guarding,Hypertonic,Tenderness ,Tightness Pelvic Clock 9-12 Guarding,Hypertonic,Tenderness ,Tightness Pelvic Clock Other Tested with q tip and no pain throughout pelvic clock at labia or vestibule, pain reported above was with insertion to at least one knuckle. Pt does have redness at perineum and toilet paper is present- pt does report blotting which may lead to toilet paper sticking to skin. Comments Pelvic Floor Comments will need to assess prolapse at later date, did not today due to pt's pain levels PT-OP-Q Treatments Start: 09/02/19 10:27 Freq: Status: Active Protocol: Document 09/10/19 14:30 AMB (Rec: 09/10/19 16:20 AMB [email or web address]) Therapeutic Exercises Supine Exercises 1 Supine Exercise Name hamstring, hip flexor, happy baby, piriformis stretch Reps/Minutes 30x2 ea Manual Therapy Treatment Soft Tissue Mobilization 1 Body Location level 1 pelvic floor Comments pubococcygeus, light manual stretching only PT-OP-T Assessment and Plan Start: 09/02/19 10:27 Freq: Status: Active Protocol: Document 09/10/19 14:30 AMB (Rec: 09/10/19 16:20 AMB [email or web address]) Physical Therapy Assessment Assessment Summary Assessment Pt was encouraged to use the smallest dilator that she has at home to continue working on the stretching. She did have increased pain at the end of the session, so we will have to be careful with how long that lasts. Physical Therapy Plan Next Visit Focus/Plan Next Note Type Treatment Note Next Visit Plan sEMG and NMES if the patient can tolerate insertion of the sensor. Manual therapy and stretching, as well as instruction in self care to reduce pain, decrease toileting/skin irritation
--- NOTE | 2019-09-17 15:38 | PT.OTN ---
Current Diagnoses Other specified disorders of muscle (09/17/19) Vulvodynia, unspecified (09/17/19) Physical Therapy Treatment Note PT-OP-A Visit Information Start: 09/02/19 10:27 Freq: Status: Active Protocol: Document 09/17/19 14:30 AMB (Rec: 09/17/19 15:38 AMB [email or web address]) Out-Patient Physical Therapy Visit Information Visit Information Visit Type Treatment Note Visit Start Time 14:30 Visit Stop Time 15:15 Total Visit Minutes 45 Visit Number 3 PT-OP-B Current Condition Start: 09/02/19 10:27 Freq: Status: Active Protocol: Document 09/02/19 14:30 AMB (Rec: 09/06/19 12:35 AMB [email or web address]) Current Condition History of Current Condition Onset Date 2+ years ago Current Complaints pelvic pain History of Current Condition Edna reports that cleaning her pelvic floor in the shower every other day is horribly painful. She states that she does have a history of painful intercourse. She late in life, and did need to use dilators prior to intercourse. That seemed to work well, and she reports that on her honeymoon she was able to tolerate intercourse well. Then her was diagnosed with Parkinson's and had a harder time maintaining an erection and this made intercoure much more painful for her. They are no longer currently sexually active. She is fine with this, her main goal is to decrease her pain with cleaning her pelvic floor. She also notes that while urinating, the act of urinating is not painful, but if the urine gets on her labia or the surrounding tissue that is quite painful. She does note small leaks with cough/sneeze. 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 She did not have a lot of pain after PT. But she finds that if she does not take a shower every other day her pain increases. PT-OP-I Pelvic Floor Start: 09/02/19 10:27 Freq: Status: Active Protocol: Document 09/02/19 14:30 AMB (Rec: 09/06/19 12:35 AMB [email or web address]) Pelvic Floor Assessment Urine Pelvic Floor Surgery No Urinary Symptoms Dysuria,Pain Leakage Size Small Leakage Cause Cough,Sneeze,Urge Leaks Per Day infrequent Voiding Frequency every 2-3 hours Nocturia 3 Pelvic Clock Pelvic Clock 12-3 Guarding,Hypertonic,Tenderness ,Tightness Pelvic Clock 3-6 Guarding,Hypertonic,Tenderness ,Tightness Pelvic Clock 6-9 Guarding,Hypertonic,Tenderness ,Tightness Pelvic Clock 9-12 Guarding,Hypertonic,Tenderness ,Tightness Pelvic Clock Other Tested with q tip and no pain throughout pelvic clock at labia or vestibule, pain reported above was with insertion to at least one knuckle. Pt does have redness at perineum and toilet paper is present- pt does report blotting which may lead to toilet paper sticking to skin. Comments Pelvic Floor Comments will need to assess prolapse at later date, did not today due to pt's pain levels PT-OP-Q Treatments Start: 09/02/19 10:27 Freq: Status: Active Protocol: Document 09/17/19 14:30 AMB (Rec: 09/17/19 15:38 AMB [email or web address]) Manual Therapy Treatment Soft Tissue Mobilization 1 Body Location internal stretching Comments Tolerated TrP release of levator ani and obturator internus, light pressure PT-OP-T Assessment and Plan Start: 09/02/19 10:27 Freq: Status: Active Protocol: Document 09/17/19 14:30 AMB (Rec: 09/17/19 15:38 AMB [email or web address]) Physical Therapy Assessment Assessment Summary Assessment Pt encouraged to continue home dilator use at home with the hopes of being able to tolerate sensor next visit. today she was able to tolerate it inserted about half way. Physical Therapy Plan Next Visit Focus/Plan Next Note Type Treatment Note Next Visit Plan sEMG and NMES if the patient can tolerate insertion of the sensor. Manual therapy and stretching, as well as instruction in self care to reduce pain, decrease toileting/skin irritation
--- NOTE | 2019-09-22 15:46 | PT.OTN ---
Current Diagnoses Other specified disorders of muscle (09/22/19) Vulvodynia, unspecified (09/22/19) Physical Therapy Treatment Note PT-OP-A Visit Information Start: 09/02/19 10:27 Freq: Status: Active Protocol: Document 09/22/19 13:45 AMB (Rec: 09/22/19 14:30 AMB [email or web address]) Out-Patient Physical Therapy Visit Information Visit Information Visit Type Treatment Note Visit Start Time 13:45 Visit Stop Time 14:25 Total Visit Minutes 40 Visit Number 4 PT-OP-B Current Condition Start: 09/02/19 10:27 Freq: Status: Active Protocol: Document 09/02/19 14:30 AMB (Rec: 09/06/19 12:35 AMB [email or web address]) Current Condition History of Current Condition Onset Date 2+ years ago Current Complaints pelvic pain History of Current Condition Edna reports that cleaning her pelvic floor in the shower every other day is horribly painful. She states that she does have a history of painful intercourse. She late in life, and did need to use dilators prior to intercourse. That seemed to work well, and she reports that on her honeymoon she was able to tolerate intercourse well. Then her was diagnosed with Parkinson's and had a harder time maintaining an erection and this made intercoure much more painful for her. They are no longer currently sexually active. She is fine with this, her main goal is to decrease her pain with cleaning her pelvic floor. She also notes that while urinating, the act of urinating is not painful, but if the urine gets on her labia or the surrounding tissue that is quite painful. She does note small leaks with cough/sneeze. 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 She states she used vaseline as a lubricant. PT-OP-I Pelvic Floor Start: 09/02/19 10:27 Freq: Status: Active Protocol: Document 09/02/19 14:30 AMB (Rec: 09/06/19 12:35 AMB [email or web address]) Pelvic Floor Assessment Urine Pelvic Floor Surgery No Urinary Symptoms Dysuria,Pain Leakage Size Small Leakage Cause Cough,Sneeze,Urge Leaks Per Day infrequent Voiding Frequency every 2-3 hours Nocturia 3 Pelvic Clock Pelvic Clock 12-3 Guarding,Hypertonic,Tenderness ,Tightness Pelvic Clock 3-6 Guarding,Hypertonic,Tenderness ,Tightness Pelvic Clock 6-9 Guarding,Hypertonic,Tenderness ,Tightness Pelvic Clock 9-12 Guarding,Hypertonic,Tenderness ,Tightness Pelvic Clock Other Tested with q tip and no pain throughout pelvic clock at labia or vestibule, pain reported above was with insertion to at least one knuckle. Pt does have redness at perineum and toilet paper is present- pt does report blotting which may lead to toilet paper sticking to skin. Comments Pelvic Floor Comments will need to assess prolapse at later date, did not today due to pt's pain levels PT-OP-Q Treatments Start: 09/02/19 10:27 Freq: Status: Active Protocol: Document 09/22/19 13:45 AMB (Rec: 09/22/19 15:45 AMB [email or web address]) Neuro Re-Education Treatment Other Activities 1 Details sEMG Comments pt inserted sensor with some discomfort but was able to do it herself. Resting tone originally high but did well with sheeba opening closing to work to get it down, encouraged pt to do this work when pain is starting to increase. PT-OP-T Assessment and Plan Start: 09/02/19 10:27 Freq: Status: Active Protocol: Document 09/22/19 13:45 AMB (Rec: 09/22/19 14:30 [facility] [id number]) Physical Therapy Assessment Assessment Summary Assessment Pt encouraged to avoid using vaseline as lubricant, given a couple lubricant packets. She was able to tolerate sEMG today, and that while her resting tone started out about 6, she was able to drop it to about 3 by the end of the session. Physical Therapy Plan Next Visit Focus/Plan Next Note Type Treatment Note Next Visit Plan sEMG and NMES if the patient can tolerate insertion of the sensor. Manual therapy and stretching, as well as instruction in self care to reduce pain, decrease toileting/skin irritation
--- NOTE | 2019-10-01 15:44 | PT.OTN ---
Current Diagnoses Other specified disorders of muscle (10/01/19) Vulvodynia, unspecified (10/01/19) Physical Therapy Treatment Note PT-OP-A Visit Information Start: 09/02/19 10:27 Freq: Status: Active Protocol: Document 10/01/19 14:30 AMB (Rec: 10/01/19 15:16 AMB [id number]) Out-Patient Physical Therapy Visit Information Visit Information Visit Type Treatment Note Visit Start Time 14:30 Visit Stop Time 15:15 Total Visit Minutes 40 Visit Number 5 PT-OP-B Current Condition Start: 09/02/19 10:27 Freq: Status: Active Protocol: Document 09/02/19 14:30 AMB (Rec: 09/06/19 12:35 AMB [email or web address]) Current Condition History of Current Condition Onset Date 2+ years ago Current Complaints pelvic pain History of Current Condition Edna reports that cleaning her pelvic floor in the shower every other day is horribly painful. She states that she does have a history of painful intercourse. She late in life, and did need to use dilators prior to intercourse. That seemed to work well, and she reports that on her honeymoon she was able to tolerate intercourse well. Then her was diagnosed with Parkinson's and had a harder time maintaining an erection and this made intercoure much more painful for her. They are no longer currently sexually active. She is fine with this, her main goal is to decrease her pain with cleaning her pelvic floor. She also notes that while urinating, the act of urinating is not painful, but if the urine gets on her labia or the surrounding tissue that is quite painful. She does note small leaks with cough/sneeze. 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 She uses the dilator, but then needs to continue to use it so that it doesn't go back to the way that it was. PT-OP-I Pelvic Floor Start: 09/02/19 10:27 Freq: Status: Active Protocol: Document 09/02/19 14:30 AMB (Rec: 09/06/19 12:35 AMB [email or web address]) Pelvic Floor Assessment Urine Pelvic Floor Surgery No Urinary Symptoms Dysuria,Pain Leakage Size Small Leakage Cause Cough,Sneeze,Urge Leaks Per Day infrequent Voiding Frequency every 2-3 hours Nocturia 3 Pelvic Clock Pelvic Clock 12-3 Guarding,Hypertonic,Tenderness ,Tightness Pelvic Clock 3-6 Guarding,Hypertonic,Tenderness ,Tightness Pelvic Clock 6-9 Guarding,Hypertonic,Tenderness ,Tightness Pelvic Clock 9-12 Guarding,Hypertonic,Tenderness ,Tightness Pelvic Clock Other Tested with q tip and no pain throughout pelvic clock at labia or vestibule, pain reported above was with insertion to at least one knuckle. Pt does have redness at perineum and toilet paper is present- pt does report blotting which may lead to toilet paper sticking to skin. Comments Pelvic Floor Comments will need to assess prolapse at later date, did not today due to pt's pain levels PT-OP-Q Treatments Start: 09/02/19 10:27 Freq: Status: Active Protocol: Document 10/01/19 14:30 AMB (Rec: 10/01/19 15:43 AMB [email or web address]) Neuro Re-Education Treatment Other Activities 1 Details sEMG Comments pt inserted sensor with some discomfort but was able to do it herself. Resting tone significantly better than last visit, however has difficulty with edi- feels that the sensor will fall out and that she is pushing. Reinforces lifting up and in with breath work so she can feel the relaxation. PT-OP-T Assessment and Plan Start: 09/02/19 10:27 Freq: Status: Active Protocol: Document 10/01/19 14:30 AMB (Rec: 10/01/19 15:16 AMB [id number]) Physical Therapy Assessment Assessment Summary Assessment Pt with resting baseline between 2-3 to begin with max of 6.5. Appears to be improving with tolerating sensor, reduced resting tone, and using dilators but then continues to feel the need to take very hot shower every other day. Physical Therapy Plan Next Visit Focus/Plan Next Note Type Treatment Note Next Visit Plan sEMG and NMES if the patient can tolerate insertion of the sensor. Manual therapy and stretching, as well as instruction in self care to reduce pain, decrease toileting/skin irritation
--- NOTE | 2019-10-08 15:45 | PT.OTN ---
Current Diagnoses Other specified disorders of muscle (10/08/19) Vulvodynia, unspecified (10/08/19) Physical Therapy Treatment Note PT-OP-A Visit Information Start: 09/02/19 10:27 Freq: Status: Active Protocol: Document 10/08/19 14:30 AMB (Rec: 10/08/19 15:45 AMB [email or web address]) Out-Patient Physical Therapy Visit Information Visit Information Visit Type Treatment Note Visit Start Time 14:30 Visit Stop Time 15:15 Total Visit Minutes 40 Visit Number 6 PT-OP-B Current Condition Start: 09/02/19 10:27 Freq: Status: Active Protocol: Document 09/02/19 14:30 AMB (Rec: 09/06/19 12:35 AMB [email or web address]) Current Condition History of Current Condition Onset Date 2+ years ago Current Complaints pelvic pain History of Current Condition Edna reports that cleaning her pelvic floor in the shower every other day is horribly painful. She states that she does have a history of painful intercourse. She late in life, and did need to use dilators prior to intercourse. That seemed to work well, and she reports that on her honeymoon she was able to tolerate intercourse well. Then her was diagnosed with Parkinson's and had a harder time maintaining an erection and this made intercoure much more painful for her. They are no longer currently sexually active. She is fine with this, her main goal is to decrease her pain with cleaning her pelvic floor. She also notes that while urinating, the act of urinating is not painful, but if the urine gets on her labia or the surrounding tissue that is quite painful. She does note small leaks with cough/sneeze. 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 PT-OP-I Pelvic Floor Start: 09/02/19 10:27 Freq: Status: Active Protocol: Document 09/02/19 14:30 AMB (Rec: 09/06/19 12:35 AMB [email or web address]) Pelvic Floor Assessment Urine Pelvic Floor Surgery No Urinary Symptoms Dysuria,Pain Leakage Size Small Leakage Cause Cough,Sneeze,Urge Leaks Per Day infrequent Voiding Frequency every 2-3 hours Nocturia 3 Pelvic Clock Pelvic Clock 12-3 Guarding,Hypertonic,Tenderness ,Tightness Pelvic Clock 3-6 Guarding,Hypertonic,Tenderness ,Tightness Pelvic Clock 6-9 Guarding,Hypertonic,Tenderness ,Tightness Pelvic Clock 9-12 Guarding,Hypertonic,Tenderness ,Tightness Pelvic Clock Other Tested with q tip and no pain throughout pelvic clock at labia or vestibule, pain reported above was with insertion to at least one knuckle. Pt does have redness at perineum and toilet paper is present- pt does report blotting which may lead to toilet paper sticking to skin. Comments Pelvic Floor Comments will need to assess prolapse at later date, did not today due to pt's pain levels PT-OP-Q Treatments Start: 09/02/19 10:27 Freq: Status: Active Protocol: Document 10/08/19 14:30 AMB (Rec: 10/08/19 15:45 AMB [email or web address]) Neuro Re-Education Treatment Other Activities 1 Details sEMG Comments pt inserted sensor with some discomfort but was able to do it herself. Has difficulty with maintaining edi- feels that the sensor will fall out and that she is pushing. Reinforces lifting up and in with breath work so she can feel the relaxation. Self-Care/Home Management Treatment Education Other Education Pt educated in gentle cleaning and not scratching of perineal area. PT-OP-T Assessment and Plan Start: 09/02/19 10:27 Freq: Status: Active Protocol: Document 10/08/19 14:30 AMB (Rec: 10/08/19 15:45 AMB [email or web address]) Physical Therapy Assessment Assessment Summary Assessment Pt gets annoyed by the crystals and reports itching and this gets so intense that she has to shower with extremely hot water. So really more itching and annoying that causes her to shower, but the hot water is very painful. Is having less pain with insertion and overall lower resting tone, but I think that all of pt's scratching and hot water is exacerbating her symptoms in the long run. Physical Therapy Plan Next Visit Focus/Plan Next Note Type Treatment Note Next Visit Plan sEMG and NMES. Manual therapy and stretching, as well as instruction in self care to reduce pain, decrease toileting/skin irritation
--- NOTE | 2019-10-16 16:54 | PT.OTN ---
Current Diagnoses Other specified disorders of muscle (10/15/19) Vulvodynia, unspecified (10/15/19) Physical Therapy Treatment Note PT-OP-A Visit Information Start: 09/02/19 10:27 Freq: Status: Active Protocol: Document 10/15/19 14:30 AMB (Rec: 10/16/19 16:54 AMB [email or web address]) Out-Patient Physical Therapy Visit Information Visit Information Visit Type Treatment Note Visit Start Time 14:30 Visit Stop Time 15:15 Total Visit Minutes 40 Visit Number 7 PT-OP-B Current Condition Start: 09/02/19 10:27 Freq: Status: Active Protocol: Document 09/02/19 14:30 AMB (Rec: 09/06/19 12:35 AMB [email or web address]) Current Condition History of Current Condition Onset Date 2+ years ago Current Complaints pelvic pain History of Current Condition Edna reports that cleaning her pelvic floor in the shower every other day is horribly painful. She states that she does have a history of painful intercourse. She late in life, and did need to use dilators prior to intercourse. That seemed to work well, and she reports that on her honeymoon she was able to tolerate intercourse well. Then her was diagnosed with Parkinson's and had a harder time maintaining an erection and this made intercoure much more painful for her. They are no longer currently sexually active. She is fine with this, her main goal is to decrease her pain with cleaning her pelvic floor. She also notes that while urinating, the act of urinating is not painful, but if the urine gets on her labia or the surrounding tissue that is quite painful. She does note small leaks with cough/sneeze. 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 PT-OP-I Pelvic Floor Start: 09/02/19 10:27 Freq: Status: Active Protocol: Document 09/02/19 14:30 AMB (Rec: 09/06/19 12:35 AMB [email or web address]) Pelvic Floor Assessment Urine Pelvic Floor Surgery No Urinary Symptoms Dysuria,Pain Leakage Size Small Leakage Cause Cough,Sneeze,Urge Leaks Per Day infrequent Voiding Frequency every 2-3 hours Nocturia 3 Pelvic Clock Pelvic Clock 12-3 Guarding,Hypertonic,Tenderness ,Tightness Pelvic Clock 3-6 Guarding,Hypertonic,Tenderness ,Tightness Pelvic Clock 6-9 Guarding,Hypertonic,Tenderness ,Tightness Pelvic Clock 9-12 Guarding,Hypertonic,Tenderness ,Tightness Pelvic Clock Other Tested with q tip and no pain throughout pelvic clock at labia or vestibule, pain reported above was with insertion to at least one knuckle. Pt does have redness at perineum and toilet paper is present- pt does report blotting which may lead to toilet paper sticking to skin. Comments Pelvic Floor Comments will need to assess prolapse at later date, did not today due to pt's pain levels PT-OP-Q Treatments Start: 09/02/19 10:27 Freq: Status: Active Protocol: Document 10/15/19 14:30 AMB (Rec: 10/16/19 16:54 AMB [email or web address]) Neuro Re-Education Treatment Other Activities 1 Details sEMG Comments pt inserted sensor with some discomfort but was able to do it herself. Better with ability to contract and relax on command today. PT-OP-T Assessment and Plan Start: 09/02/19 10:27 Freq: Status: Active Protocol: Document 10/15/19 14:30 AMB (Rec: 10/16/19 16:54 AMB [email or web address]) Physical Therapy Assessment Assessment Summary Assessment Educated pt that she needs to be stretching out her tissues daily, not just one time per week. May want to return to MD to discuss crystals, although really not sure why that would be occuring only at night and not during the day, or not noticing it in her underwear. Overall much lower resting tone on NMES but continues to feel the need to take very hot showers, although not for as long.
--- NOTE | 2019-10-22 16:05 | PT.OTN ---
Current Diagnoses Other specified disorders of muscle (10/22/19) Vulvodynia, unspecified (10/22/19) Physical Therapy Treatment Note PT-OP-A Visit Information Start: 09/02/19 10:27 Freq: Status: Active Protocol: Document 10/22/19 14:30 AMB (Rec: 10/22/19 15:01 AMB [id number]) Out-Patient Physical Therapy Visit Information Visit Information Visit Type Discharge Summary Visit Start Time 14:35 Visit Stop Time 15:15 Total Visit Minutes 40 Visit Number 8 PT-OP-B Current Condition Start: 09/02/19 10:27 Freq: Status: Active Protocol: Document 09/02/19 14:30 AMB (Rec: 09/06/19 12:35 AMB [email or web address]) Current Condition History of Current Condition Onset Date 2+ years ago Current Complaints pelvic pain History of Current Condition Edna reports that cleaning her pelvic floor in the shower every other day is horribly painful. She states that she does have a history of painful intercourse. She late in life, and did need to use dilators prior to intercourse. That seemed to work well, and she reports that on her honeymoon she was able to tolerate intercourse well. Then her was diagnosed with Parkinson's and had a harder time maintaining an erection and this made intercoure much more painful for her. They are no longer currently sexually active. She is fine with this, her main goal is to decrease her pain with cleaning her pelvic floor. She also notes that while urinating, the act of urinating is not painful, but if the urine gets on her labia or the surrounding tissue that is quite painful. She does note small leaks with cough/sneeze. 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 PT-OP-I Pelvic Floor Start: 09/02/19 10:27 Freq: Status: Active Protocol: Document 09/02/19 14:30 AMB (Rec: 09/06/19 12:35 AMB [email or web address]) Pelvic Floor Assessment Urine Pelvic Floor Surgery No Urinary Symptoms Dysuria,Pain Leakage Size Small Leakage Cause Cough,Sneeze,Urge Leaks Per Day infrequent Voiding Frequency every 2-3 hours Nocturia 3 Pelvic Clock Pelvic Clock 12-3 Guarding,Hypertonic,Tenderness ,Tightness Pelvic Clock 3-6 Guarding,Hypertonic,Tenderness ,Tightness Pelvic Clock 6-9 Guarding,Hypertonic,Tenderness ,Tightness Pelvic Clock 9-12 Guarding,Hypertonic,Tenderness ,Tightness Pelvic Clock Other Tested with q tip and no pain throughout pelvic clock at labia or vestibule, pain reported above was with insertion to at least one knuckle. Pt does have redness at perineum and toilet paper is present- pt does report blotting which may lead to toilet paper sticking to skin. Comments Pelvic Floor Comments will need to assess prolapse at later date, did not today due to pt's pain levels PT-OP-Q Treatments Start: 09/02/19 10:27 Freq: Status: Active Protocol: Document 10/22/19 14:30 AMB (Rec: 10/22/19 16:04 AMB [email or web address]) Neuro Re-Education Treatment Other Activities 1 Details sEMG Comments pt inserted sensor with some discomfort but was able to do it herself. Better with ability to contract and relax on command today. PT-OP-T Assessment and Plan Start: 09/02/19 10:27 Freq: Status: Active Protocol: Document 10/22/19 14:30 AMB (Rec: 10/22/19 16:01 AMB [email or web address]) Physical Therapy Assessment Goals 3 Impairment pain Short Term Goal (STG) Edna will tolerate insertion of a medium dilator without an increase in pain. STG Duration MET Custodial Goal (LTG) Edna will be able to wash herself without an increase in her baseline pain. LTG Duration MET 2 Impairment stress incontinence Short Term Goal (STG) Edna will be independent with a HEP to reduce her pelvic tension and improve her pelvic floor strength. STG Duration MET Custodial Goal (LTG) Edna will be able to cough without leaking urine. LTG Duration MET Assessment Summary Assessment Edna has shown good improvement with her resting baseline tone and ability to tolerate stretching. She notes that she has not needed to shower with super hot water to numb herself over the past week, and has not screamed out in pain in the shower in the past week. She still feels itchy over her labia especially at night and notices extra discharge only at night, so pt was encouraged to discuss this with Dr. Mcguire. Overall her pain is improving, but she will still need to work on her stretching and she does continue to have some intermittent urgency although she has been given options to deal with this. Physical Therapy Plan Discharge Physical Therapy Discharge Comments Pt is starting over with her deductible in the new years, so we are discharging her. She is starting to improve with PT, but likely could benefit from more in the future if she does not fully resolve. She is going to schedule a follow up with her PUBLIC SERVICE REPRESENTATIVE.
== END 2019-10-23 09:39 | disposition home or self-care (01) ==
LOC: PHYS 14:30
PROVIDERS: PCP Internal Medicine; Visit Provider Specialist
DX: M62.89 Other specified disorders of muscle (principal); N94.819 Vulvodynia, unspecified
CPT/HCPCS: 97110; 97112; 97140; 97162; 97535

== ENCOUNTER → 2019-11-10 12:07 | Outpatient (CLI) | payer OTHER, SELFPAY ==
--- NOTE | 2019-11-10 12:27 | DI.CT.S_ITS ---
PROCEDURE: CT ABDOMEN PELVIS WO CON INDICATIONS: epi-gastric pains TECHNIQUE: After the administration of oral contrast, 5 mm thick sections acquired from the diaphragms to the symphysis. 5 mm coronal and sagittal reformats were performed. For radiation dose reduction, the following was used: automated exposure control, adjustment of mA and/or kV according to patient size. COMPARISON: [facility], CT, ABDOMEN/PELVIS WITHOUT CONTRAS, 11/27/2017, 19:50. [facility], CT, KIDNEY/ URETER/BLADDER, 12/03/2013, 22:24. FINDINGS: Image quality: Excellent. ABDOMEN: Lung bases: Lung bases are clear. Heart size is normal. There is a modest to large sized hiatal hernia. Solid organs: Liver is normal in size. There is a 1.6 x 2.2 cm cyst in the posterior left hepatic lobe adjacent to the falciform ligament. Gallbladder is surgically absent. Pancreas is normal in size. Spleen is normal in size. No adrenal nodules. Both kidneys are normal in size, without hydronephrosis or nephrolithiasis. Peritoneum and bowel: Bowel loops demonstrate normal wall thickness and caliber. There are sigmoid diverticula. No acute diverticulitis. Normal appendix. No free fluid or air. Nodes and vessels: No retroperitoneal or mesenteric adenopathy by size criteria. Aorta and inferior vena cava are normal in size. Miscellaneous: No ventral hernias. PELVIS: Genitourinary: Bladder wall thickness is normal. Uterus is unremarkable. No adnexal mass or pathological free fluid. Miscellaneous: No inguinal hernias or adenopathy. Bones: No suspicious bony lesions. No vertebral body compression fractures. IMPRESSION: 1. Moderate to large size hiatal hernia. 2. A hepatic cyst. 3. Diverticulosis without diverticulitis. Dictated by: Ophelia Mora M.D. on 11/10/2019 at 14:24 Approved by: Ophelia Mora M.D. on 11/10/2019 at 15:54
== END ==
PROVIDERS: Family Provider Specialist; PCP Internal Medicine; Visit Provider Internal Medicine
DX: R10.13 Epigastric pain (principal); R10.2 Pelvic and perineal pain; K44.9 Diaphragmatic hernia without obstruction or gangrene; K76.89 Other specified diseases of liver; K57.30 Diverticulosis of large intestine without perforation or abscess without bleeding; G89.29 Other chronic pain; Z90.49 Acquired absence of other specified parts of digestive tract
CPT/HCPCS: 74176

== ENCOUNTER → 2020-01-04 11:33 | Outpatient (CLI) | payer OTHER, SELFPAY ==
--- NOTE | 2020-01-04 11:36 | DI.RAD.S_ITS ---
PROCEDURE: XR HAND LT MIN 3V INDICATIONS: finger pain TECHNIQUE: The views of the hand(s) acquired. COMPARISON: [facility], , HAND 3V LEFT, 01/29/2018, 10:48. FINDINGS: Bones: No fractures or dislocations. Carpal bones are normally aligned. No suspicious bony lesions. Juxta-articular lucency present at the DIP joint of the middle finger is unchanged. Soft tissues: No suspicious soft tissue calcifications. IMPRESSION: Negative examination. If the patient's pain or other symptoms persist, consider further evaluation with MRI Dictated by: Dallas Negron M.D. on 01/04/2020 at 16:07 Approved by: Dallas Negron M.D. on 01/04/2020 at 16:09
== END ==
PROVIDERS: Family Provider Specialist; PCP Internal Medicine; Referring Provider Internal Medicine; Visit Provider Internal Medicine
DX: M79.645 Pain in left finger(s) (principal)
CPT/HCPCS: 73130

== ENCOUNTER → 2021-05-09 11:12 | Outpatient (CLI) | payer OTHER, SELFPAY ==
[2021-05-09 11:52] LABS: Add Manual Diff / Slide Review NO; Basophils Absolute Auto 0 /uL (0-100); Basophils Percent Auto 0.4 % (0-2); Eosinophils Absolute Auto 100 /uL (0-450); Hematocrit 39.4 % (36-46); Hemoglobin 12.5 g/dL (12.0-16.0); Lymphocytes Absolute Auto 1800 /uL (1100-4500); Lymphocytes Percent Auto 38.6 % (25-40); Mean Corpuscular HGB Conc 31.8 % (30-36); Mean Corpuscular Hemoglobin 25.4 PG (26-34); Mean Corpuscular Volume 79.9 fL (80-100); Monocytes Absolute Auto 400 /uL (0-900); Monocytes Percent Auto 8.9 % (3-14); Neutrophils Absolute Auto 2300 /uL (1500-7000); Neutrophils Percent Auto 49.1 % (50-75); Platelet Count 257 X10^3/uL (150-400); Red Blood Cell Count 4.93 X10^6/uL (4.0-5.2); Red Cell Distribution Width 14.7 % (11.6-14.8); White Blood Cell Count 4.6 X10^3/uL (4.5-11.0)
[2021-05-09 12:07] LABS: Erythrocyte Sedimentation Rate 20 MM/HR (0-20)
[2021-05-09 12:14] LABS: Alanine Aminotransferase 15 IU/L (<35); Albumin Globulin Ratio 1.3 (1.0-2.8); Alkaline Phosphatase 75 U/L (38-126); Aspartate Aminotransferase 25 IU/L (14-36); BUN Creatinine Ratio 13.4 (6-22); Bilirubin Total 0.3 mg/dL (0.2-1.3); Blood Urea Nitrogen 9 mg/dL (7-17); C-Reactive Protein Quant 0.7 mg/dL (<1.0); Carbon Dioxide 29 mmol/L (22-32); Chloride 104 mmol/L (98-107); Estimated Glomerular Filt Rate > 60.0 mL/min (>60); Globulin 3.2 g/dL (1.7-4.1); Glucose 85 mg/dL (80-110); HEMOLYSIS < 15 (0-50); Lipase 119 U/L (23-300); Potassium 4.1 mmol/L (3.4-5.1); Sodium 138 mmol/L (137-145); Total Protein 7.2 g/dL (6.3-8.2)
[2021-05-09 12:48] LABS: TSH w/ Reflex to FT4 1.68 uIU/mL (0.47-4.68)
== END ==
PROVIDERS: Family Provider Specialist; PCP Internal Medicine; Referring Provider Internal Medicine; Visit Provider Internal Medicine
DX: R10.2 Pelvic and perineal pain (principal); R10.9 Unspecified abdominal pain
CPT/HCPCS: 36415; 80053; 83690; 84443; 85025; 85651; 86140

== ENCOUNTER → 2021-08-25 13:01 | Outpatient (CLI) | payer OTHER, SELFPAY ==
--- NOTE | 2021-08-25 | DI.MG.S_ITS ---
BILATERAL DIGITAL SCREENING MAMMOGRAM 3D/2D WITH CAD: 08/25/2021 CLINICAL: Routine screening. Family history of breast cancer. Comparison is made to exams dated: 09/09/2019 mammogram, 09/24/2016 mammogram, 09/06/2018 mammogram, and 01/06/2008 mammogram - [facility]. The tissue of both breasts is heterogeneously dense. This may lower the sensitivity of mammography. Current study was also evaluated with a Computer Aided Detection (CAD) system. No significant masses, calcifications, or other findings are seen in either breast. There has been no significant interval change. IMPRESSION: NEGATIVE There is no mammographic evidence of malignancy. A 1 year screening mammogram is recommended. This exam was interpreted at Station ID: [id number]. NOTE: For mammograms, a report in lay terms will be sent to the patient. Approximately 15% of breast malignancies will not be visualized mammographically. In the management of a palpable breast mass, a negative mammogram must not discourage biopsy of a clinically suspicious lesion. Electronically Signed By: Murtaza altman/luis:08/25/2021 13:43:42 letter sent: Normal Exam ACR BI-RADS Category 1: Negative [id number]
== END ==
PROVIDERS: Family Provider Specialist; PCP Internal Medicine; Referring Provider Internal Medicine; Visit Provider Internal Medicine
DX: Z12.31 Encounter for screening mammogram for malignant neoplasm of breast (principal); Z80.3 Family history of malignant neoplasm of breast
CPT/HCPCS: 77063; 77067

== ENCOUNTER 2021-09-07 12:31 | Emergency (ER) | payer OTHER, SELFPAY ==
[2021-09-07 12:42] VITALS: BP 128/81; PULSE 72; RESP 20; TEMP 37.2; O2SAT 97; BMI 32.5
--- NOTE | 2021-09-07 13:45 | ED.EXTPRO ---
HPI - Extremity Problem <Ruben Rivers PA-C - Last Filed: 09/07/21 19:42> General Chief complaint: Extremity Problem,Nontraumatic Stated complaint: Rt Foot Pain and Leg Swelling Time Seen by Provider: 09/07/21 13:30 History of Present Illness HPI Narrative: Patient is a 65-year-old female presenting to the emergency department today for an evaluation right leg swelling and right foot pain. She explains that she has had bilateral lower extremity swelling for ?months to years? and she usually wears compression stockings to alleviate swelling in the legs bilaterally. However, she is preparing for an upcoming trip and has packed all of her available compression stockings. She notes that she has experienced worsening pain in her right foot over the past month and she explains that she noticed the swelling in her right lower extremity worsened today. She denies fever, chills, chest pain, shortness of breath, cough, abdominal pain, nausea, vomiting, diarrhea, dysuria, or numbness and tingling in the bilateral lower extremities. No other concerns voiced at this time. Related Data Home Medications Medication Instructions Recorded Confirmed aspirin 325 mg tablet (Luisa 650 mg PO Q4-6H PRN 12/11/18 06/08/21 Aspirin) metronidazole 1 % topical cream 1 applic TOPICAL QPM 04/24/19 06/08/21 (Noritate) Previous Rx's Medication Instructions Recorded hydrocortisone acetate 25 mg 25 mg IA QDAYP PRN #12 suppositor 05/08/19 rectal suppository (Anusol-HC) fluocinonide 0.05 % topical 1 applic TOPICAL DIRECTED PRN 11/13/19 ointment #30 gram omeprazole 40 mg capsule,delayed 40 mg PO DAILY #90 cap 12/26/20 release sertraline 50 mg tablet 50 mg PO DAILY #30 tab 03/13/21 gabapentin 300 mg capsule 300 mg PO BEDTIME #14 cap 09/07/21 Allergies Allergy/AdvReac Type Severity Reaction Status Date / Time Iodinated Contrast Media Allergy Severe shakes, Verified 05/09/21 10:37 [IODINATED CONTRAST MEDIA - hives, IV DYE] itchy lidocaine [LIDOCAINE] Allergy Severe shakes, Verified 05/09/21 10:37 hyperventilating, near syncope adhesive [ADHESIVE] Allergy Mild paper tape Verified 05/09/21 10:37 causes blisters, other tapes ok prilocaine [PRILOCAINE] Allergy Mild shaking, Verified 05/09/21 10:37 rash Sulfa (Sulfonamide Allergy Mild childhood Verified 05/09/21 10:37 Antibiotics) rxn [SULFA (SULFONAMIDE ANTIBIOTICS)] julissa Allergy Mild rash Uncoded 05/09/21 10:37 metal Allergy Mild necklaces, Uncoded 05/09/21 10:37 rings, bracelets, causes irritations/blisters fin fish Allergy Unknown rash/hives Uncoded 05/09/21 10:37 Review of Systems <Ruben Rivers PA-C - Last Filed: 09/07/21 19:42> Constitutional Constitutional: Denies chills, Denies fever(s), Denies frequent falls, Denies lethargy and Denies weakness ENT Ears, Nose, Mouth, and Throat: Denies dizziness Cardiovascular Cardiovascular: Denies chest pain, Denies irregular heart rhythm, Denies lightheadedness, Denies palpitations, Denies dyspnea, Denies dyspnea on exertion and Denies orthopnea Respiratory Respiratory: Denies cough, Denies dyspnea, Denies dyspnea on exertion and Denies wheezing Gastrointestinal Gastrointestinal: Denies abdominal pain, Denies change in bowel habits, Denies diarrhea, Denies nausea and Denies vomiting Musculoskeletal Musculoskeletal: Denies numbness and Reports other (Right leg swelling, right foot pain) Neurologic Neurologic: Denies behavioral changes, Denies confusion, Denies dizziness, Denies frequent falls, Denies numbness and Denies weakness Psychiatric Psychiatric: Denies behavioral changes and Denies confusion Endocrine Endocrine: Denies palpitations Allergic/Immunologic Allergic/Immunologic: Denies wheezing Patient History <Ruben Rivers PA-C - Last Filed: 09/07/21 19:42> Medical History (Updated 09/07/21 @ 14:44 by Ruben Rivers PA-C) Anxiety Cataract Chicken pox (1968) Chronic abdominal pain Class 1 obesity (12/30/14) Eczema (03/02/15) Encephalitis (~1962) Foot pain (2005) GERD (gastroesophageal reflux disease) (01/22/13) Gluten enteropathy H/O adenomatous polyp of colon (09/12/11) Hayfever Hemorrhoids Hiatal hernia Mumps (~1959) Pelvic floor dysfunction Rosacea Venous insufficiency of right leg Vulvodynia Surgical History Anesthesia complication History of strabismus surgery (1966) Status post colonoscopy (01/10/10) Status post endoscopy (08/06/14) Status post knee surgery (2011) Status post laparoscopic cholecystectomy (2013) Status post laparoscopy (05/2010) Status post ovarian cystectomy (2003) Family History Father CAD (coronary artery disease) High cholesterol Asbestos exposure Smoker Myocardial infarction Grandfather Kidney stones Grandmother Goiter Breast cancer Colon cancer Mother COPD (chronic obstructive pulmonary disease) Diabetes mellitus Lung disease Grandmother Breast cancer Sister Age: 65 Atrial fibrillation Asthma Grandfather No problems noted. Social History marital status: household members: spouse occupational status: previously employed Smoking Status: Never smoker alcohol intake: never substance use type: does not use Smoking Status: Never smoker alcohol intake frequency: 0-2 drinks per day Substance Use Type: does not use Exam <Ruben Rivers PA-C - Last Filed: 09/07/21 19:42> Narrative Exam Narrative: GENERAL: 65 year old patient appears stated age. Well-developed patient, in no acute distress. HEAD: Atraumatic. Normocephalic. EYES: Pupils equal round and reactive. Extraocular motions intact. No scleral icterus. No injection or drainage. ENT: Nose without bleeding, purulent drainage. Throat without erythema, tonsillar hypertrophy or exudate. Airway patent. NECK: Trachea midline. Non tender CARDIOVASCULAR: Regular rate and rhythm without murmurs, gallops, or rubs. RESPIRATORY: Clear to auscultation. Breath sounds equal bilaterally. No wheezes, rales, or rhonchi. GASTROINTESTINAL: Abdomen soft, non-tender, nondistended. EXTREMITIES: No edema. Mild tenderness to palpation appreciated over the right lateral malleolus. No ecchymosis or erythema appreciated. Good sensation appreciated throughout the bilateral lower extremities to light touch. BACK: Nontender without deformity or crepitance. No flank tenderness. NEURO: AOx3. SKIN: No rash or erythema of visible areas Initial Vital Signs Initial Vital Signs: Vital Signs Temperature 98.9 F 09/07/21 12:42 Pulse Rate 72 09/07/21 12:42 Respiratory Rate 20 09/07/21 12:42 Blood Pressure 128/81 09/07/21 12:42 Pulse Oximetry 97 09/07/21 12:42 Cardio Pulses: dorsalis pedis present bilaterally <Eve Garcia DO - Last Filed: 09/09/21 18:55> Initial Vital Signs Initial Vital Signs: Vital Signs Temperature 98.9 F 09/07/21 12:42 Pulse Rate 72 09/07/21 12:42 Respiratory Rate 20 09/07/21 12:42 Blood Pressure 128/81 09/07/21 12:42 Pulse Oximetry 97 09/07/21 12:42 Course <Ruben Rivers PA-C - Last Filed: 09/07/21 19:42> Course Course Narrative: Patient is a 65-year-old female presenting to the emergency department today for an evaluation right leg swelling and right foot pain. Orders Ordered: ED Orders 09/07/21 13:46 US periph venous low extrem rt Stat 09/07/21 13:49 XR foot RT min 3V Stat Vital Signs Vital signs: Vital Signs - 8 hr 09/07/21 12:42 09/07/21 15:15 Temperature 98.9 F 97.8 F Pulse Rate 72 79 Respiratory Rate 20 18 Blood Pressure 128/81 125/84 Pulse Oximetry 97 97 <Eve Garcia DO - Last Filed: 09/09/21 18:55> Orders Ordered: ED Orders 09/07/21 13:46 US periph venous low extrem rt Stat 09/07/21 13:49 XR foot RT min 3V Stat Vital Signs Vital signs: Vital Signs - 8 hr 09/07/21 12:42 09/07/21 15:15 Temperature 98.9 F 97.8 F Pulse Rate 72 79 Respiratory Rate 20 18 Blood Pressure 128/81 125/84 Pulse Oximetry 97 97 MDM - Extremity (Nontraumatic) <JAZMYNE Hanley Last Filed: 09/07/21 19:42> Imaging Data US - DVT: Radiologist's Impression: PROCEDURE:? US PERIPH VENOUS LOW EXTREM RT ? INDICATIONS:? Lower extremity soft tissue abnormality.? Clinical concern for DEEP VEIN THROMBOSIS ? TECHNIQUE:? Real-time imaging, as well as color and pulse Doppler interrogation, were performed of the lower extremity deep veins from the inguinal ligament to the popliteal fossa.? ? COMPARISON:? [facility], , XR FOOT RT MIN 3V, 09/07/2021, 14:05. ? FINDINGS:? The common femoral, femoral and popliteal veins are normally compressible, and free of intraluminal thrombus.? Color and pulse Doppler demonstrate normal phasic intraluminal flow.? There is normal augmentation response to distal compression maneuver. ? IMPRESSION:? ? Negative for deep venous thrombosis. ? ? Dictated by: Joseph Fleming M.D. on 09/07/2021 at 13:16 ? ? Approved by: Joseph Fleming M.D. on 09/07/2021 at 13:17 ? Extremity x-ray #1: Radiologist's Impression: PROCEDURE:? XR FOOT RT MIN 3V ? INDICATIONS:? Pain in foot ? TECHNIQUE:? 3 views of the foot were acquired.? ? COMPARISON:? [facility], , US PERIPH VENOUS LOW EXTREM RT, 09/07/2021, 13:54.? [facility], , FOOT 3V RIGHT, 01/11/2012, 15:53. ? FINDINGS:? ? Bones:? No fractures or dislocations.? No suspicious bony lesions.? Age-appropriate bony degenerative changes are seen.? Plantar and Achilles calcaneal spurs are seen. ? Soft tissues:? No tibiotalar joint effusion.? Achilles tendon appears normal.? ? ? IMPRESSION:? Degenerative changes are seen, without a focal bony abnormality identified. ? ? Dictated by: Joseph Fleming M.D. on 09/07/2021 at 13:17 ? ? Approved by: Joseph Fleming M.D. on 09/07/2021 at 13:18 ? [facility] Narrative Medical decision making narrative: Patient is a 65-year-old female presenting to the emergency department today for an evaluation right leg swelling and right foot pain. To consider DVT versus fracture versus sprain versus strain versus radiculopathy. Right lower extremity ultrasound obtained and x-ray right foot obtained. Ultrasound showed no sign DVT and the foot x-ray showed degenerative changes without any acute bony abnormality. Discussed results with patient and at this time she feels comfortable being discharged home. Strict return precautions were discussed with the patient. Absence of shortness of breath and chest pain in patient history is overall reassuring. Discharge Plan Departure Patient Disposition: Home Clinical Impression: Acute pain of right foot Instructions: DI for Foot Pain Activity Restrictions/Additional Instructions: *You have been diagnosed with acute right foot pain *What to do: *Please continue to take your regular medications as directed. [X] New medication prescriptions sent to your pharmacy: Kim Victoriacortes - Gabapentin [ ] New medication written as a paper prescription [ ] No new medications given *Please follow up with your primary care provider in 2-3 days, call for an appointment. Let them know you were seen in the Emergency Department and that we ask that you be seen in follow up. We will electronically transmit a record of today's note if your PCP is in our system *If you do not have a primary care provider please contact the [facility] Resource line at [phone]. They will ask some questions about your medical history and help get you set up with a doctor in the community. *Return to Emergency Department if you should have any new, worsening or concerning symptoms, such as fever greater than 101 F, shaking chills, worsening pain, persistent vomiting or other bothersome symptoms. Prescriptions: New gabapentin 300 mg capsule 300 mg PO BEDTIME Qty: 14 RF: 0 No Action hydrocortisone acetate [Anusol-HC] 25 mg suppository 25 mg IA QDAYP PRN (Reason: hemorrhoids) Qty: 12 RF: 1 omeprazole 40 mg capsule,delayed release(DR/EC) 40 mg PO DAILY Qty: 90 RF: 3 sertraline 50 mg tablet 50 mg PO DAILY Qty: 30 RF: 8 aspirin [Luisa Aspirin] 325 mg tablet 650 mg PO Q4-6H PRN (Reason: Headache) RF: 0 fluocinonide 0.05 % ointment 1 applic TOPICAL DIRECTED PRN (Reason: itching, pain involved) Qty: 30 RF: 1 Noritate 1 % Cream 1 applic topical QPM RF: 0 Referrals: Td Borjas MD [Primary Care Provider] - <Eve Garcia DO - Last Filed: 09/09/21 18:55> [facility] ED Attending Vasquezature Attestation: I was immediately available in the department for consultation. Documentation has been reviewed. I agree with assessment and plan.
--- NOTE | 2021-09-07 13:46 | DI.US.S_ITS ---
PROCEDURE: US PERIPH VENOUS LOW EXTREM RT INDICATIONS: Lower extremity soft tissue abnormality. Clinical concern for DEEP VEIN THROMBOSIS TECHNIQUE: Real-time imaging, as well as color and pulse Doppler interrogation, were performed of the lower extremity deep veins from the inguinal ligament to the popliteal fossa. COMPARISON: [facility], CR, XR FOOT RT MIN 3V, 09/07/2021, 14:05. FINDINGS: The common femoral, femoral and popliteal veins are normally compressible, and free of intraluminal thrombus. Color and pulse Doppler demonstrate normal phasic intraluminal flow. There is normal augmentation response to distal compression maneuver. IMPRESSION: Negative for deep venous thrombosis. Dictated by: Joseph Fleming M.D. on 09/07/2021 at 13:16 Approved by: Joseph Fleming M.D. on 09/07/2021 at 13:17
--- NOTE | 2021-09-07 13:49 | DI.RAD.S_ITS ---
PROCEDURE: XR FOOT RT MIN 3V INDICATIONS: Pain in foot TECHNIQUE: 3 views of the foot were acquired. COMPARISON: [facility], , US PERIPH VENOUS LOW EXTREM RT, 09/07/2021, 13:54. [facility], , FOOT 3V RIGHT, 01/11/2012, 15:53. FINDINGS: Bones: No fractures or dislocations. No suspicious bony lesions. Age-appropriate bony degenerative changes are seen. Plantar and Achilles calcaneal spurs are seen. Soft tissues: No tibiotalar joint effusion. Achilles tendon appears normal. IMPRESSION: Degenerative changes are seen, without a focal bony abnormality identified. Dictated by: Joseph Fleming M.D. on 09/07/2021 at 13:17 Approved by: Joseph Fleming M.D. on 09/07/2021 at 13:18
[2021-09-07 15:15] VITALS: BP 125/84; PULSE 79; RESP 18; TEMP 36.6; O2SAT 97
== END 2021-09-07 15:16 | disposition home or self-care (01) ==
PROVIDERS: Emergency Provider Physician Assistant; Family Provider Specialist; PCP Internal Medicine
DX: M79.671 Pain in right foot (principal); M79.89 Other specified soft tissue disorders
CPT/HCPCS: 73630; 93971; 99283

== ENCOUNTER → 2022-09-18 15:37 | Outpatient (CLI) | payer OTHER, SELFPAY ==
--- NOTE | 2022-09-18 15:41 | DI.MG.S_ITS ---
BILATERAL DIGITAL SCREENING MAMMOGRAM 3D/2D WITH CAD: 09/18/2022 CLINICAL: Routine screening. Family history of breast cancer. Comparison is made to exams dated: 08/25/2021 mammogram, 09/09/2019 mammogram, and 09/06/2018 mammogram - [facility]. Both breasts are heterogeneously dense, which may obscure small masses (category c / 51-75% glandular tissue). Current study was also evaluated with a Computer Aided Detection (CAD) system. No significant masses, calcifications, or other findings are seen in either breast. There has been no significant interval change. IMPRESSION: NEGATIVE There is no mammographic evidence of malignancy. A 1 year screening mammogram is recommended. Based on the Tyrer Cuzick model (a risk assessment model) the patient's lifetime risk is 11.9% and her 10 year risk is 5.6%. According to the ACR, ACS, and NCCN guidelines, an annual breast MRI exam along with mammogram is recommended if the patient's lifetime risk is 20% or greater. This exam was interpreted at Station ID: [id number]. NOTE: For mammograms, a report in lay terms will be sent to the patient. Approximately 15% of breast malignancies will not be visualized mammographically. In the management of a palpable breast mass, a negative mammogram must not discourage biopsy of a clinically suspicious lesion. Electronically Signed By: Viktoriya hitchcock/luis:09/19/2022 09:16:32 letter sent: Normal Exam ACR BI-RADS Category 1: Negative [id number]
== END ==
PROVIDERS: Family Provider Specialist; PCP Internal Medicine; Referring Provider Internal Medicine; Visit Provider Internal Medicine
DX: Z12.31 Encounter for screening mammogram for malignant neoplasm of breast (principal); Z80.3 Family history of malignant neoplasm of breast
CPT/HCPCS: 77063; 77067

== ENCOUNTER → 2022-12-10 15:49 | Outpatient (CLI) | payer MEDICARE, SELFPAY ==
[2022-12-10 16:23] LABS: Add Manual Diff / Slide Review NO; Basophils Absolute Auto 0 /uL (0-100); Basophils Percent Auto 0.4 % (0-2); Eosinophils Absolute Auto 100 /uL (0-450); Hematocrit 36.3 % (36-46); Hemoglobin 11.9 g/dL (12.0-16.0); Lymphocytes Absolute Auto 1700 /uL (1100-4500); Lymphocytes Percent Auto 34.9 % (25-40); Mean Corpuscular HGB Conc 32.8 % (30-36); Mean Corpuscular Volume 73.2 fL (80-100); Monocytes Absolute Auto 400 /uL (0-900); Monocytes Percent Auto 7.5 % (3-14); Neutrophils Absolute Auto 2600 /uL (1500-7000); Neutrophils Percent Auto 55.2 % (50-75); Platelet Count 317 X10^3/uL (150-400); Red Blood Cell Count 4.96 X10^6/uL (4.0-5.2); Red Cell Distribution Width 16.8 % (11.6-14.8); White Blood Cell Count 4.7 X10^3/uL (4.5-11.0)
[2022-12-10 17:01] LABS: Alanine Aminotransferase 17 IU/L (<35); Albumin 4.2 g/dL (3.5-5.0); Albumin Globulin Ratio 1.2 (1.0-2.8); Alkaline Phosphatase 84 U/L (38-126); Aspartate Aminotransferase 24 IU/L (14-36); BUN Creatinine Ratio 10.1 (6-22); Bilirubin Total 0.5 mg/dL (0.2-1.3); Blood Urea Nitrogen 7 mg/dL (7-17); Calcium 8.8 mg/dL (8.4-10.2); Carbon Dioxide 28 mmol/L (22-32); Chloride 102 mmol/L (98-107); Cholesterol 213 mg/dL (140-199); Estimated Glomerular Filt Rate > 60 mL/min (>60); Globulin 3.5 g/dL (1.7-4.1); Glucose 97 mg/dL (80-110); HDL Cholesterol 72 mg/dL (40-60); HEMOLYSIS < 15 (0-50); LDL Cholesterol Calculated 123 mg/dL (<100); Sodium 138 mmol/L (137-145); Total Protein 7.7 g/dL (6.3-8.2); Triglycerides 91 mg/dL (35-150)
[2022-12-10 17:07] LABS: HEMOLYSIS < 15 (0-50); Iron 30 ug/dL (37-170)
[2022-12-10 17:19] LABS: Percent Iron Saturation 7 % (15-50); Total Iron Binding Capacity 418 ug/dL (265-497); Transferrin 316 mg/dL (206-381)
[2022-12-10 17:24] LABS: Free T4, Direct Thyroxine 1.38 ng/dL (0.78-2.19)
[2022-12-10 17:38] LABS: Thyroid Stimulating Hormone 1.03 uIU/mL (0.47-4.68)
== END ==
PROVIDERS: Family Provider Specialist; PCP Internal Medicine; Referring Provider Internal Medicine; Visit Provider Internal Medicine
DX: K21.9 Gastro-esophageal reflux disease without esophagitis (principal); F41.9 Anxiety disorder, unspecified
CPT/HCPCS: 36415; 80053; 80061; 83540; 83550; 84439; 84443; 85025

== ENCOUNTER → 2023-04-23 12:11 | Outpatient (CLI) | payer MEDICARE, OTHER, SELFPAY ==
[2023-04-23 14:10] LABS: Add Manual Diff / Slide Review NO; Basophils Absolute Auto 0 /uL (0-100); Basophils Percent Auto 0.4 % (0-2); Eosinophils Absolute Auto 100 /uL (0-450); Eosinophils Percent Auto 2.7 % (2-4); Hematocrit 44.8 % (36-46); Hemoglobin 15.1 g/dL (12.0-16.0); Lymphocytes Absolute Auto 1300 /uL (1100-4500); Lymphocytes Percent Auto 29.4 % (25-40); Mean Corpuscular HGB Conc 33.7 % (30-36); Mean Corpuscular Hemoglobin 28.3 PG (26-34); Mean Corpuscular Volume 84.1 fL (80-100); Monocytes Absolute Auto 300 /uL (0-900); Monocytes Percent Auto 7.6 % (3-14); Neutrophils Absolute Auto 2700 /uL (1500-7000); Neutrophils Percent Auto 59.9 % (50-75); Platelet Count 230 X10^3/uL (150-400); Red Blood Cell Count 5.32 X10^6/uL (4.0-5.2); Red Cell Distribution Width 18.7 % (11.6-14.8); White Blood Cell Count 4.5 X10^3/uL (4.5-11.0)
[2023-04-23 14:35] LABS: Alanine Aminotransferase 18 IU/L (<35); Albumin 4.2 g/dL (3.5-5.0); Albumin Globulin Ratio 1.4 (1.0-2.8); Alkaline Phosphatase 70 U/L (38-126); Aspartate Aminotransferase 27 IU/L (14-36); BUN Creatinine Ratio 13.8 (6-22); Bilirubin Total 0.6 mg/dL (0.2-1.3); Blood Urea Nitrogen 9 mg/dL (7-17); Carbon Dioxide 30 mmol/L (22-32); Chloride 101 mmol/L (98-107); Estimated Glomerular Filt Rate > 60 mL/min (>60); Globulin 3.1 g/dL (1.7-4.1); Glucose 101 mg/dL (80-110); HEMOLYSIS < 15 (0-50); Potassium 4.2 mmol/L (3.4-5.1); Sodium 138 mmol/L (137-145); Total Protein 7.3 g/dL (6.3-8.2)
[2023-04-23 14:37] LABS: HEMOLYSIS < 15 (0-50); Iron 78 ug/dL (37-170)
[2023-04-23 14:49] LABS: Percent Iron Saturation 25 % (15-50); Total Iron Binding Capacity 311 ug/dL (265-497); Transferrin 225 mg/dL (206-381)
== END ==
PROVIDERS: Family Provider Specialist; PCP Internal Medicine; Referring Provider Internal Medicine; Visit Provider Internal Medicine
DX: E61.1 Iron deficiency (principal); F41.9 Anxiety disorder, unspecified; G89.29 Other chronic pain; R10.9 Unspecified abdominal pain
CPT/HCPCS: 36415; 80053; 83540; 83550; 85025

== ENCOUNTER → 2023-04-25 11:48 | Outpatient (CLI) | payer MEDICARE, OTHER, SELFPAY ==
--- NOTE | 2023-04-25 11:50 | DI.RAD.S_ITS ---
PROCEDURE: XR ACUTE ABDOMEN SERIES INDICATIONS: abdominal pain TECHNIQUE: One view chest and two views of the abdomen were acquired. COMPARISON: None. FINDINGS: Surgical changes and devices: Right upper quadrant cholecystectomy clips. Chest: Lungs are clear. Heart size is normal. No pleural effusions. No pneumoperitoneum. Abdomen: Bowel gas pattern is normal. Mild to moderate stool burden. No suspicious calcifications. Visualized solid organ contours appear normal. Bones: No suspicious bony lesions. IMPRESSION: Nonobstructive bowel gas pattern. No pneumoperitoneum. No acute cardiopulmonary abnormality. Approved by: Tommy Sylvester M.D. on 04/25/2023 at 16:30
== END ==
PROVIDERS: Family Provider Specialist; PCP Internal Medicine; Referring Provider Internal Medicine; Visit Provider Internal Medicine
DX: R10.9 Unspecified abdominal pain (principal)
CPT/HCPCS: 74022

== ENCOUNTER → 2023-09-24 13:38 | Outpatient (CLI) | payer MEDICARE, OTHER, SELFPAY ==
[2023-09-24 14:19] LABS: Add Manual Diff / Slide Review NO; Basophils Absolute Auto 0 /uL (0-100); Basophils Percent Auto 0.4 % (0-2); Eosinophils Absolute Auto 100 /uL (0-450); Eosinophils Percent Auto 2.3 % (2-4); Hematocrit 46.9 % (36-46); Hemoglobin 15.6 g/dL (12.0-16.0); Lymphocytes Absolute Auto 1400 /uL (1100-4500); Lymphocytes Percent Auto 33.1 % (25-40); Mean Corpuscular HGB Conc 33.2 % (30-36); Mean Corpuscular Hemoglobin 29.1 PG (26-34); Mean Corpuscular Volume 87.5 fL (80-100); Monocytes Absolute Auto 300 /uL (0-900); Monocytes Percent Auto 6.7 % (3-14); Neutrophils Absolute Auto 2500 /uL (1500-7000); Neutrophils Percent Auto 57.5 % (50-75); Platelet Count 276 X10^3/uL (150-400); Red Blood Cell Count 5.36 X10^6/uL (4.0-5.2); Red Cell Distribution Width 13.4 % (11.6-14.8); White Blood Cell Count 4.3 X10^3/uL (4.5-11.0)
[2023-09-24 14:33] LABS: HEMOLYSIS < 15 (0-50); Iron 102 ug/dL (37-170)
[2023-09-24 14:35] LABS: Alanine Aminotransferase 16 IU/L (<35); Albumin 4.2 g/dL (3.5-5.0); Albumin Globulin Ratio 1.2 (1.0-2.8); Alkaline Phosphatase 78 U/L (38-126); Aspartate Aminotransferase 28 IU/L (14-36); BUN Creatinine Ratio 13.8 (6-22); Bilirubin Total 0.8 mg/dL (0.2-1.3); Blood Urea Nitrogen 9 mg/dL (7-17); Carbon Dioxide 27 mmol/L (22-32); Chloride 103 mmol/L (98-107); Estimated Glomerular Filt Rate > 60 mL/min (>60); Globulin 3.4 g/dL (1.7-4.1); Glucose 107 mg/dL (80-110); HEMOLYSIS < 15 (0-50); Potassium 4.1 mmol/L (3.4-5.1); Sodium 136 mmol/L (137-145); Total Protein 7.6 g/dL (6.3-8.2)
[2023-09-24 14:45] LABS: Percent Iron Saturation 37 % (15-50); Total Iron Binding Capacity 277 ug/dL (265-497); Transferrin 234 mg/dL (206-381)
== END ==
PROVIDERS: Family Provider Specialist; PCP Internal Medicine; Referring Provider Internal Medicine; Visit Provider Internal Medicine
DX: K59.09 Other constipation (principal); R10.9 Unspecified abdominal pain; E61.1 Iron deficiency; G89.29 Other chronic pain
CPT/HCPCS: 36415; 80053; 83540; 83550; 85025

== ENCOUNTER → 2023-10-30 10:52 | Outpatient (CLI) | payer MEDICARE, OTHER, SELFPAY ==
--- NOTE | 2023-10-30 | DI.MG.S_ITS ---
BILATERAL DIGITAL SCREENING MAMMOGRAM 3D/2D WITH CAD: 10/30/2023 CLINICAL: Routine screening. Family history of breast cancer. Comparison is made to exams dated: 09/18/2022 mammogram, 08/25/2021 mammogram, and 09/09/2019 mammogram - [facility]. Both breasts are heterogeneously dense, which may obscure small masses (category c / 51-75% glandular tissue). Current study was also evaluated with a Computer Aided Detection (CAD) system. No significant masses, calcifications, or other findings are seen in either breast. There has been no significant interval change. IMPRESSION: NEGATIVE There is no mammographic evidence of malignancy. A 1 year screening mammogram is recommended. Based on the Tyrer Cuzick model (a risk assessment model) the patient's lifetime risk is 10.9% and her 10 year risk is 5.6%. According to the ACR, ACS, and NCCN guidelines, an annual breast MRI exam along with mammogram is recommended if the patient's lifetime risk is 20% or greater. This exam was interpreted at Station ID: [id number]. NOTE: For mammograms, a report in lay terms will be sent to the patient. Approximately 15% of breast malignancies will not be visualized mammographically. In the management of a palpable breast mass, a negative mammogram must not discourage biopsy of a clinically suspicious lesion. Electronically Signed By: Viktoriya hitchcock/luis:10/30/2023 11:16:41 letter sent: Normal Exam ACR BI-RADS Category 1: Negative [id number]
== END ==
LOC: MAMMO 10:53
PROVIDERS: Family Provider Specialist; PCP Internal Medicine; Referring Provider Internal Medicine; Visit Provider Internal Medicine
DX: Z12.31 Encounter for screening mammogram for malignant neoplasm of breast (principal); Z80.3 Family history of malignant neoplasm of breast
CPT/HCPCS: 77063; 77067

== ENCOUNTER → 2023-12-02 13:52 | Outpatient (CLI) | payer MEDICARE, OTHER, SELFPAY ==
--- NOTE | 2023-12-02 13:55 | DI.RAD.S_ITS ---
PROCEDURE: XR RIBS RT MIN 3V W CXR 1V INDICATIONS: right rib pain after fall 1 week ago TECHNIQUE: 4 views of the ribs were acquired, along with a single view chest. COMPARISON: None. FINDINGS: Surgical changes and devices: None. Bones and chest wall: No fractures or dislocations. No suspicious bony lesions. Overlying soft tissues appear unremarkable. Lungs and pleura: No pleural effusions or pneumothorax. Lungs appear clear. Mediastinum: Mediastinal contours appear normal. Heart size is normal. IMPRESSION: No acute displaced rib fracture or pneumothorax. Approved by: Angela Garcia M.D. on 12/02/2023 at 14:54
== END ==
PROVIDERS: Family Provider Specialist; PCP Internal Medicine; Referring Provider Physician Assistant; Visit Provider Physician Assistant
DX: R07.81 Pleurodynia (principal)
CPT/HCPCS: 71101

== ENCOUNTER → 2024-08-17 12:06 | Outpatient (CLI) | payer MEDICARE, OTHER, SELFPAY ==
--- NOTE | 2024-08-17 12:08 | DI.RAD.S_ITS ---
PROCEDURE: XR HIP W PEL IF DONE RT 2V INDICATIONS: r hip pain TECHNIQUE: 2 views of the hip were acquired. COMPARISON: None. FINDINGS: Mild degenerative changes of the right hip with mild joint space narrowing and small osteophytes. No radiographic evidence of displaced fracture, dislocation or high attenuation soft tissue foreign body. IMPRESSION: Mild degenerative changes as discussed above. If symptoms persist or worsen, or there is high clinical suspicion of pelvic/hip abnormality, MRI could be performed. Dictated by: Jus Haider M.D. on 08/19/2024 at 18:57 Approved by: Jus Haider M.D. on 08/19/2024 at 19:00
== END ==
PROVIDERS: Family Provider Specialist; PCP Internal Medicine; Referring Provider Internal Medicine; Visit Provider Internal Medicine
DX: M25.551 Pain in right hip (principal)
CPT/HCPCS: 73502

== ENCOUNTER → 2024-11-03 13:13 | Outpatient (CLI) | payer MEDICARE, OTHER, SELFPAY ==
--- NOTE | 2024-11-03 | DI.MG.S_ITS ---
BILATERAL DIGITAL SCREENING MAMMOGRAM 3D/2D WITH CAD: 11/03/2024 CLINICAL: Routine screening. Family history of breast cancer. Comparison is made to exams dated: 10/30/2023 mammogram, 09/18/2022 mammogram, 08/25/2021 mammogram, 09/09/2019 mammogram, and 09/06/2018 mammogram - [facility]. The breasts are heterogeneously dense, which may obscure small masses (category c / 51-75% glandular tissue). Current study was also evaluated with a Computer Aided Detection (CAD) system. No significant masses, calcifications, or other findings are seen in either breast. There has been no significant interval change. IMPRESSION: NEGATIVE There is no mammographic evidence of malignancy. A 1 year screening mammogram is recommended. Based on the Tyrer Cuzick model (a risk assessment model) the patient's lifetime risk is 10.4% and her 10 year risk is 5.5%. According to the ACR, ACS, and NCCN guidelines, an annual breast MRI exam along with mammogram is recommended if the patient's lifetime risk is 20% or greater. This exam was interpreted at Station ID: [id number]. NOTE: For mammograms, a report in lay terms will be sent to the patient. Approximately 15% of breast malignancies will not be visualized mammographically. In the management of a palpable breast mass, a negative mammogram must not discourage biopsy of a clinically suspicious lesion. Electronically Signed By: Angela Garcia M.D., Ph.D. joelle/luis:11/04/2024 11:03:59 letter sent: Normal Exam ACR BI-RADS Category 1: Negative
== END ==
PROVIDERS: Family Provider Specialist; PCP Internal Medicine; Referring Provider Internal Medicine; Visit Provider Internal Medicine
DX: Z12.31 Encounter for screening mammogram for malignant neoplasm of breast (principal); Z80.3 Family history of malignant neoplasm of breast; R92.333 Mammographic heterogeneous density, bilateral breasts
CPT/HCPCS: 77063; 77067

== ENCOUNTER → 2025-04-26 13:36 | Outpatient (CLI) | payer MEDICARE, OTHER, SELFPAY ==
--- NOTE | 2025-04-26 13:50 | DI.MRI.S_ITS ---
PROCEDURE: MR ANKLE RT WO CON INDICATIONS: pain of right heel TECHNIQUE: Noncontrast sagittal T1 spin echo and T2 fast spin echo with fat saturation, axial proton density fast spin echo and T2 fast spin echo with fat saturation, coronal T1 spin echo and T2 fast spin echo with fat saturation through the ankle/hindfoot. COMPARISON: None. FINDINGS: Image quality: Excellent. Bones and joints: Wall defined plantar calcaneal enthesophyte is seen. Small dorsal calcaneal enthesophyte is also noted. There is marrow edema involving inferior mid to posterior calcaneus weight-bearing portion. No discrete fracture line. Mild midfoot and hindfoot joint osteoarthritic changes are seen. No other area of marrow edema. No fracture or dislocation. Tiny 2-3 mm osteochondral injury involving medial weight-bearing portion of talar dome is seen. Small tibiotalar joint effusion, no loose bodies. Medial structures: The posterior tibialis tendon is thickened with small amount of fluid distending tendon sheath at the level of tibiotalar joint extending to the level of no talonavicular joint. The flexor digitorum longus, and flexor hallucis longus tendons are intact. The posterior tibial neurovascular bundle appears normal within the tarsal tunnel, without extrinsic mass effect. The deltoid ligament and spring ligament are intact. Lateral structures: The anterior talofibular, calcaneofibular, and posterior talofibular ligaments appear intact. More superiorly, the anterior and posterior tibiofibular ligaments appear intact, as is the intermalleolar ligament. The tibiofibular syndesmosis is normal in width at 2 mm or less. The peroneus brevis tendon is intact. The peroneus longus tendon is mildly thickened with subtle intrasubstance T2 hyperintense signal at the level of mid to distal calcaneus extending to the level of cuboid. The sinus tarsi demonstrates normal fatty signal, without edema, fibrosis, or cyst formation. Anterior structures: The tibialis anterior, extensor hallucis longus, and extensor digitorum longus tendons appear intact. The dorsal talonavicular ligament appears intact. Posterior and plantar structures: Achilles tendon is intact. Thickened medial band of plantar fascia with intrasubstance T2 hyperintense signal suggestive of low to moderate grade plantar fasciitis and low-grade partial-thickness tear at its plantar calcaneal insertion. No abductor digiti quinti muscle atrophy to suggest Singh neuropathy. IMPRESSION: 1. Finding is suggestive of low to moderate grade plantar fasciitis and low- grade partial-thickness tear involving medial band of plantar fascia at its calcaneal insertion. 2. Well-defined plantar and dorsal calcaneal enthesophytes with marrow edema involving inferior portion of mid to posterior calcaneus without discrete fracture line suggestive of stress related changes. 3. Mild midfoot and hindfoot joint osteoarthritis. No fracture or dislocation. Tiny 3 mm osteochondral injury involving medial weight-bearing portion of talar dome. Small joint effusion, no loose bodies. 4. Low-grade tenosynovitis involving posterior tibialis tendon at the level of tibiotalar joint extending to the level of talonavicular joint. 5. Mild tendinosis involving peroneus longus tendon at the level of mid to distal calcaneus extending to the level of cuboid. 6. Medial and lateral ankle ligaments are intact. Dictated by: Chung Swain M.D. on 04/27/2025 at 8:27 Approved by: Chung Swain M.D. on 04/27/2025 at 9:24
== END ==
PROVIDERS: Family Provider Specialist; PCP Internal Medicine; Referring Provider Podiatrist; Visit Provider Podiatrist
DX: M77.31 Calcaneal spur, right foot (principal); M19.071 Primary osteoarthritis, right ankle and foot; M25.471 Effusion, right ankle; M65.871 Other synovitis and tenosynovitis, right ankle and foot; M79.671 Pain in right foot
CPT/HCPCS: 73721

== ENCOUNTER → 2025-06-08 15:55 | Outpatient (CLI) | payer MEDICARE, OTHER, SELFPAY ==
[2025-06-08 17:57] LABS: Add Manual Diff / Slide Review NO; Hematocrit 43.5 % (36-46); Hemoglobin 14.9 g/dL (12.0-16.0); Lymphocytes Absolute Auto 1400 /uL (1100-4500); Mean Corpuscular HGB Conc 34.2 % (30-36); Mean Corpuscular Hemoglobin 30.0 PG (26-34); Mean Corpuscular Volume 87.7 fL (80-100); Platelet Count 248 X10^3/uL (150-400)
[2025-06-08 19:08] LABS: Alanine Aminotransferase 16 IU/L (<35); Albumin 4.3 g/dL (3.5-5.0); Albumin Globulin Ratio 1.5 (1.0-2.8); Alkaline Phosphatase 82 U/L (38-126); Blood Urea Nitrogen 16 mg/dL (7-17); Calcium 8.9 mg/dL (8.4-10.2); Carbon Dioxide 26 mmol/L (22-32); Chloride 103 mmol/L (98-107); Estimated Glomerular Filt Rate > 60 mL/min (>60); Globulin 2.9 g/dL (1.7-4.1); Glucose 112 mg/dL (70-99); HEMOLYSIS < 15 (0-50); Potassium 3.8 mmol/L (3.4-5.1); Sodium 139 mmol/L (137-145); Total Protein 7.2 g/dL (6.3-8.2)
[2025-06-08 19:27] LABS: Vitamin D 25 Hydroxy (D3) 16.2 ng/mL (30.0-100.0)
[2025-06-08 19:39] LABS: TSH w/ Reflex to FT4 1.51 uIU/mL (0.47-4.68)
[2025-06-08 20:15] LABS: Folate 4.2 ng/mL (2.76-20.0); Vitamin B12 193 pg/mL (239-931)
== END ==
PROVIDERS: Student in an Organized Health Care Education/Training Program; Family Provider Specialist; PCP Internal Medicine; Referring Provider Internal Medicine; Visit Provider Internal Medicine
DX: F32.2 Major depressive disorder, single episode, severe without psychotic features (principal); R10.9 Unspecified abdominal pain; G89.29 Other chronic pain; F43.22 Adjustment disorder with anxiety
CPT/HCPCS: 80053; 82306; 82607; 82746; 84443; 85025